=== PATIENT | female | born 1975 | race Caucasian/White ===

== ENCOUNTER 2016-06-26 08:23 | Emergency (ER) | payer OTHER ==
[2016-06-26 08:34] VITALS: TEMP 97.3
--- NOTE | 2016-06-26 08:41 | CPEKG ---
Heart Rate: 76 RR Interval: 789 P-R Interval: 192 QRSD Interval: 84 QT Interval: 360 QTC Interval: 405 P [place]: -7 QRS [place]: 14 T Wave [place]: 22 EKG Severity - NORMAL ECG - EKG Impression: SINUS RHYTHM Electronically Signed By: Heike Barone 26-Jun-2016 15:32:58
[2016-06-26] MEDS ORDERED: ONDANSETRON 4 MG/2 ML VIAL IVP ONE (09:08)
[2016-06-26] MEDS ORDERED: ASPIRIN 81 MG CHEWABLE TAB PO ONE (09:08)
--- NOTE | 2016-06-26 09:08 | EDPHY ---
H & P Time Seen by Provider: 06/26/16 08:44 HPI/ROS: CHIEF COMPLAINT: Chest pain HISTORY OF PRESENT ILLNESS: Patient is a 40-year-old female with a complicated past medical history. She has a history of coronary artery dissection. This is required total of 7 stents. Her last catheterization was in 2013. Patient has had ongoing issues with her "stomach." Patient states this is stemming from a gastric sleeve surgery. Patient has not been feeling well since Friday. She has felt lightheaded and dizzy. Last night she woke up diaphoretic. She noticed left-sided chest pressure. This radiated to her arm. It was moderate in severity. It is been constant since last night. She denies any cough or measured fever. No leg pain or swelling. REVIEW OF SYSTEMS: My complete review of systems is negative except as mentioned in the HPI. Past Medical/Surgical History: Includes coronary dissection obesity, hypercholesterolemia, depression, anxiety , reflux, chronic abdominal discomfort, C diff Past surgical history: Includes tonsillectomy, gastric sleeve with revision, C- section x2, cholecystectomy, endometrial ablation, hysterectomy Social History: Social: The patient does not smoke. Smoking Status: Never smoked Physical Exam: Vitals noted GENERAL: No acute distress, alert. HEENT: Eyes normal to inspection, normal pharynx, no signs of dehydration. NECK: No thyromegaly, no lymphadenopathy, supple. RESPIRATORY: Clear to auscultation bilaterally, no rales, rhonchi or wheezing. CVS: Regular rate and rhythm, no rubs, murmurs, or gallops. ABDOMEN: Soft, nontender, nondistended, no organomegaly. BACK: Normal to inspection, no CVA tenderness. SKIN: Normal color, no rash, warm, dry. No pallor. EXTREMITIES: No pedal edema, no calf tenderness, no Homans sign or cords, no joint swelling. NEURO/PSYCH: Alert and oriented x3, normal mood and affect, normal motor sensory exam. No obvious cranial nerve deficit. Constitutional: Initial Vital Signs Temperature (C) 36.3 C 06/26/16 08:32 Heart Rate 79 06/26/16 08:32 Respiratory Rate 20 06/26/16 08:32 Blood Pressure 116/85 H 06/26/16 08:32 O2 Sat (%) 95 06/26/16 08:32 O2 Delivery Mode Room Air Allergies/Adverse Reactions: cephalexin monohydrate [From Keflex] Allergy (Verified 06/26/16 08:29) epinephrine Allergy (Verified 06/26/16 08:29) hydromorphone HCl [From Dilaudid] Allergy (Verified 06/26/16 08:29) Other-Enter Comments ibuprofen Allergy (Verified 06/26/16 08:29) morphine Allergy (Verified 06/26/16 08:29) NSAIDS (Non-Steroidal Anti-Inflamma Allergy (Verified 06/26/16 08:29) Penicillins Allergy (Verified 06/26/16 08:29) tape (plastic) Allergy (Uncoded 12/11/13 04:35) Rash Home Medications: Medication Instructions Recorded Aspirin EC [Aspirin EC 81 mg (*)] 81 mg PO HS 12/10/13 Clopidogrel Bisulfate [Plavix (*)] 75 mg PO HS 12/10/13 Cyanocobalamin [Vitamin B12 (*)] 2,500 mcg PO DAILY 12/10/13 Dexlansoprazole [Dexilant] 60 mg PO DAILY 12/10/13 Ergocalciferol [Vitamin D2 (*)] 50,000 unit PO GIMENEZ 12/10/13 Promethazine HCl [Phenergan 25mg 25 mg PO Q6 PRN 12/10/13 (*)] Pyridoxine HCl [Vitamin B-6 100 mg 100 mg PO DAILY 12/10/13 (*)] Sertraline HCl [Zoloft 100mg (*)] 250 mg PO HS 12/10/13 Topiramate [Topamax] 50 mg PO BID 12/10/13 Zolpidem Tartrate [Ambien 10 mg] 10 mg PO HS PRN 12/10/13 traZODone [traZODONE 50MG (*)] 50 mg PO HS 12/10/13 Herbals/Supplements -Info Only 1 ea PO DAILY 03/14/15 Labetalol HCl [Trandate 100 mg (*)] 100 mg PO BID 03/14/15 Ondansetron Odt [Zofran Odt 4 mg 8 mg PO Q6 PRN 03/14/15 (*)] Sucralfate [Carafate 1gm/10ml Oral 1 gm PO QID 03/14/15 Liquid (*)] Potassium Cl [Klor-Con 10 meq (RX)] 10 meq PO HS 04/06/15 Gabapentin [Neurontin 300 MG (*)] 300 mg PO HS 04/07/15 Acetaminophen [Tylenol 325mg (*)] 650 mg PO Q4 PRN #0 tab 04/09/15 Fentanyl 06/26/16 Medical Decision Making - Diagnostics EKG Interpretation: Sinus rhythm at 71. Normal axis. Normal intervals. No ST or T-wave abnormalities. This EKG is interpreted as normal by me. Imaging Results: Imaging Impressions Chest/Thorax CTA 06/26/16 10:32 Impression: 1. No evidence of thrombopulmonary embolic disease. 2. Normal caliber thoracic aorta. No dissection. 3. Clear lungs. 4. Small to moderate hiatal hernia. Findings discussed with Emergency Department physician, Heike Barone on June 26, 2016 at 11:00 a.m. ED Course/Re-evaluation: In the emergency department I discussed possible etiologies with the patient. I answered all her questions. Patient was given aspirin 324 mg orally. Laboratory studies, EKG were ordered. EKG shows normal sinus rhythm, normal rate, normal axis, normal intervals. There is slight ST elevation in III. I reviewed the patient's laboratory studies. The patient's troponin was negative. Her D-dimer was mildly elevated at 0.6. I discussed the results with cardiology [employer] OF [employer]. She was thus the case with Dr. Cuca Burton call me back. Patient complained of return of her chest pain. Repeat EKG was ordered. Patient was given fentanyl 50 mcg IV. Repeat EKG shows sinus rhythm with normal axis and normal intervals. There is still mild ST elevation in III. No change. I discussed the results with the patient answered all her questions. Due to the elevated D-dimer, she consented to CT angiogram. CT angiogram: Please refer the dictated report. No acute disease noted. I repaged cardiology. They will evaluate the patient in the emergency department. 1345: Dr. Sun saw the patient in the emergency department. He felt the patient could be discharged from the emergency department. He did not feel this was cardiac in nature. I discussed this with the patient. I answered all her questions. She was given warnings prior to leaving. She will return with worsening symptoms. Differential Diagnosis: My differential includes but is not limited to dissection, ACS, acute MS, pericarditis, myocarditis, pericardial effusion, pulmonary embolus - Data Points Laboratory Results: Laboratory Results 06/26/16 09:00 06/26/16 09:00 06/26/16 06/26/16 06/26/16 12:34 09:00 09:00 WBC RBC Hgb Hct MCV MCH MCHC RDW Plt Count MPV Neut % (Auto) Lymph % (Auto) [place] % (Auto) Eos % (Auto) Baso % (Auto) Nucleat RBC Rel Count Absolute Neuts (auto) Absolute Lymphs (auto) Absolute Monos (auto) Absolute Eos (auto) Absolute Basos (auto) Absolute Nucleated RBC Immature Gran % Immature Gran # D-Dimer 0.60 ug/mLFEU H ug/mLFEU (0.00-0.50) Sodium 141 mEq/L mEq/L (134-144) Potassium 4.1 mEq/L mEq/L (3.5-5.2) Chloride 108 mEq/L mEq/L (97-110) Carbon Dioxide 24 mEq/l mEq/l (22-31) Anion Gap 9 mEq/L mEq/L (8-16) BUN 9 mg/dL mg/dL (7-23) Creatinine 0.6 mg/dL mg/dL (0.6-1.0) Estimated GFR > 60 Glucose 85 mg/dL mg/dL (70-100) Calcium 8.8 mg/dL mg/dL (8.5-10.4) Total Bilirubin 0.7 mg/dL mg/dL (0.1-1.4) Conjugated Bilirubin 0.5 mg/dL mg/dL (0.0-0.5) Unconjugated Bilirubin 0.2 mg/dL mg/dL (0.0-1.1) AST 134 IU/L H IU/L (14-46) ALT 78 IU/L H IU/L (9-52) Alkaline Phosphatase 60 IU/L IU/L (38-126) Troponin I < 0.012 ng/mL ng/mL < 0.012 ng/mL ng/mL (0-0.034) (0-0.034) Total Protein 6.4 g/dL g/dL (6.3-8.2) Albumin 3.8 g/dL g/dL (3.5-5.0) Lipase 46.0 IU/L IU/L (23-300) 06/26/16 09:00 WBC 5.83 10^3/uL 10^3/uL (3.80-9.50) RBC 4.52 10^6/uL 10^6/uL (4.18-5.33) Hgb 13.5 g/dL g/dL (12.6-16.3) Hct 39.1 % % (38.0-47.0) MCV 86.5 fL fL (81.5-99.8) MCH 29.9 pg pg (27.9-34.1) MCHC 34.5 g/dL g/dL (32.4-36.7) RDW 12.4 % % (11.5-15.2) Plt Count 208 10^3/uL 10^3/uL (150-400) MPV 9.3 fL fL (8.7-11.7) Neut % (Auto) 60.3 % % (39.3-74.2) Lymph % (Auto) 29.0 % % (15.0-45.0) [place] % (Auto) 7.7 % % (4.5-13.0) Eos % (Auto) 2.4 % % (0.6-7.6) Baso % (Auto) 0.3 % % (0.3-1.7) Nucleat RBC Rel Count 0.0 % % (0.0-0.2) Absolute Neuts (auto) 3.51 10^3/uL 10^3/uL (1.70-6.50) Absolute Lymphs (auto) 1.69 10^3/uL 10^3/uL (1.00-3.00) Absolute Monos (auto) 0.45 10^3/uL 10^3/uL (0.30-0.80) Absolute Eos (auto) 0.14 10^3/uL 10^3/uL (0.03-0.40) Absolute Basos (auto) 0.02 10^3/uL 10^3/uL (0.02-0.10) Absolute Nucleated RBC 0.00 10^3/uL 10^3/uL (0-0.01) Immature Gran % 0.3 % % (0.0-1.1) Immature Gran # 0.02 10^3/uL 10^3/uL (0.00-0.10) D-Dimer Sodium Potassium Chloride Carbon Dioxide Anion Gap BUN Creatinine Estimated GFR Glucose Calcium Total Bilirubin Conjugated Bilirubin Unconjugated Bilirubin AST ALT Alkaline Phosphatase Troponin I Total Protein Albumin Lipase Medications Given: Discontinued Medications Aspirin (Aspirin) 324 mg PO EDNOW ONE Stop: 06/26/16 09:09 Last Admin: 06/26/16 09:17 Dose: 324 mg Fentanyl (Sublimaze) 50 mcg IVP EDNOW ONE Stop: 06/26/16 10:28 Last Admin: 06/26/16 10:30 Dose: 50 mcg Ondansetron HCl (Zofran) 4 mg IVP EDNOW ONE Stop: 06/26/16 09:09 Last Admin: 06/26/16 09:17 Dose: 4 mg Departure - Departure Disposition: Home, Routine, Self-Care Clinical Impression: Chest pain Qualifiers: Chest pain type: unspecified Qualified Code(s): R07.9 - Chest pain, unspecified Condition: Good Instructions: Chest Pain (ED) Additional Instructions: Return with increasing chest pain, shortness of breath, fever, chills or any other concerns. Referrals: FLACO KAUFFMAN [Primary Care Provider] - 2-3 days, call for appt.
[2016-06-26 09:26] LABS: % IMMATURE GRANULYOCYTES 0.3 % (0.0-1.1); ABSOLUTE IMMATURE GRANULOCYTES 0.02 10^3/uL (0.00-0.10); ADD DIFF? NO; ADD MORPH? NO; ADD SCAN? NO; ATYPICAL LYMPHOCYTE FLAG 20 (0-99); FRAGMENT RBC FLAG 0 (0-99); HEMATOCRIT 39.1 % (38.0-47.0); HEMOGLOBIN 13.5 g/dL (12.6-16.3); LEFT SHIFT FLG 0 (0-99); LIPEMIA HEMOLYSIS FLAG 90 (0-99); MEAN CELL HEMOGLOBIN 29.9 pg (27.9-34.1); MEAN CELL HEMOGLOBIN CONCENTR. 34.5 g/dL (32.4-36.7); MEAN CELL VOLUME 86.5 fL (81.5-99.8); MEAN PLATELET VOLUME 9.3 fL (8.7-11.7); PLATELET CLUMPS FLAG 0 (0-99); PLATELET COUNT 208 10^3/uL (150-400); RED BLOOD CELL COUNT 4.52 10^6/uL (4.18-5.33); RED CELL DISTRIBUTION WIDTH 12.4 % (11.5-15.2)
[2016-06-26 09:37] LABS: ALANINE AMINOTRANSFERASE 78 IU/L (9-52); ALBUMIN 3.8 g/dL (3.5-5.0); ALKALINE PHOSPHATASE 60 IU/L (38-126); ANION GAP 9 mEq/L (8-16); ASPARTATE AMINOTRANSFERASE 134 IU/L (14-46); BILIRUBIN,TOTAL 0.7 mg/dL (0.1-1.4); BILIRUBIN-CONJUGATED 0.5 mg/dL (0.0-0.5); BILIRUBIN-UNCONJUGATED 0.2 mg/dL (0.0-1.1); CALCIUM 8.8 mg/dL (8.5-10.4); CARBON DIOXIDE 24 mEq/l (22-31); CHLORIDE 108 mEq/L (97-110); CREATININE 0.6 mg/dL (0.6-1.0); GLOMERULAR FILTRATION RATE > 60; GLUCOSE 85 mg/dL (70-100); POTASSIUM 4.1 mEq/L (3.5-5.2); SODIUM 141 mEq/L (134-144); TOTAL PROTEIN 6.4 g/dL (6.3-8.2)
[2016-06-26 09:44] VITALS: RESP 18
[2016-06-26 10:05] LABS: TROPONIN I < 0.012 ng/mL (0-0.034)
[2016-06-26] MEDS ORDERED: fentaNYL 100 MCG/2 ML INJ IVP ONE (10:27)
--- NOTE | 2016-06-26 10:32 | CPEKG ---
Heart Rate: 69 RR Interval: 870 P-R Interval: 192 QRSD Interval: 88 QT Interval: 384 QTC Interval: 412 P [place]: 1 QRS [place]: 10 T Wave [place]: 21 EKG Severity - NORMAL ECG - EKG Impression: SINUS RHYTHM Electronically Signed By: Heike Barone 26-Jun-2016 15:32:58
[2016-06-26] MEDS ORDERED: IOPAMIDOL (ISOVUE 370) 100 ML BTL IV ONE (10:42)
[2016-06-26 12:06] VITALS: BP 121/74; PULSE 64; O2SAT 95
--- NOTE | 2016-06-26 14:10 | PDCONSULT ---
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 She presents to the emergency department complaining of left-sided chest discomfort that radiated into her left arm and woke her from sleep. This was associated with profuse and abnormal sweating. The patient has also recently struggled with stomach pain and frequent nausea/vomiting associated with gastric sleeve surgery. She is planning on following up with a bariatric specialist in [place] regarding these issues. The chest discomfort has since dissipated and she feels well. ROS is negative except as stated above. Physical Exam: General: Patient is alert, in no acute distress. Obese. ENT: Eyes are normal to inspection. Neck: Normal inspection. Full range of motion. Respiratory: No respiratory distress. Breath sounds normal bilaterally. Cardiovascular: Regular rate and rhythm. No murmur, gallops or rubs. Abdomen: The abdomen is nontender to palpation. There are normal bowel sounds. Back: Normal to inspection. No tenderness to palpation. Skin: Normal color. No rash. Warm and dry. Extremities: Normal appearance. Full range of motion. Neuro: Oriented x3. Chest CTA: Negative for PE, normal caliber thoracic aorta, no evidence of dissection, clear lungs, small to moderate hiatal hernia. Assessment/Plan: 1. Chest discomfort. Negative troponin, resting EKG not suggestive of ischemia. She had a recent cardiac cath 03/14/15, which showed widely patent stents, no obstructive lesions identified and normal left ventricular filling pressures. I do not believe further cardiac testing is warranted in the absence of new symptoms or worsening chest discomfort. The patient should return to the emergency department promptly if she experiences new or worsening symptoms. 30 minutes was spent with the patient today with over 50% of the time discussing care, reviewing studies and physical exam
== END 2016-06-26 14:15 | disposition home or self-care (01) ==
DX: R07.9 Chest pain, unspecified (principal); Z79.82 Long term (current) use of aspirin
CPT/HCPCS: 96374; J2405; J3010; Q9967

== ENCOUNTER 2017-05-12 17:53 | Observation (INO) | payer OTHER ==
--- NOTE | 2017-05-12 17:59 | EDPHY ---
H & P Time Seen by Provider: 05/12/17 17:57 HPI/ROS: CHIEF COMPLAINT: Chest pain HISTORY OF PRESENT ILLNESS: Patient describes chest pain over the last 3 weeks which she describes as aching going to her left arm with tingling and numbness in her arm as well as radiating up to her neck. She describes increasing frequency of oral nitroglycerin which is now daily, which does help gives her headache. The patient had LAD dissection back in 2005 with stenting then and in 2007. Last cardiac catheterization in our system is in 2016 but she says she has had 17 cardiac catheterizations. She saw her station captain Dr. Gutierrez last Friday who ordered as a CT arteriogram of her coronaries but that has not been done yet. Patient's symptoms are progressive and worsening. Not associated with fevers or chills, but with shortness of breath and decreased exercise tolerance. Describes them as severe. REVIEW OF SYSTEMS: Eye: no change in vision ENT: no sore throat Cardiac: HPI no palpitations or syncope Pulmonary: HPI Abdomen: Patient has chronic nausea vomiting and some abdominal pain since her gastric sleeve surgery in 2007. The symptoms are essentially unchanged from with a have been Musculoskeletal: no back pain Skin: no rash Neuro: no headache Constitutional: no fever : no urinary symptoms A comprehensive 10 point review of systems is otherwise negative aside from elements mentioned in the history of present illness. PAST MEDICAL HISTORY: Gastric bypass sleeve surgery in 2007, coronary artery dissection as above. Depression and anxiety, Clostridium difficile. Social history: Here with her mother. 94% on RA General Appearance: Alert and conversant, cooperative. Eyes: No scleral icterus. ENT, Mouth: Normal mucous membranes. Respiratory: Normal respiratory effort, breath sounds equal, lungs are clear to auscultation. Cardiovascular: Regular rate and rhythm. Gastrointestinal: Abdomen is soft and non tender. No rebound or guarding, bowel sounds present. Neurological: Alert, face symmetric, normal motor and sensory in extremities. Skin: Warm and dry, no rashes. Musculoskeletal: No peripheral edema. Psychiatric: Not agitated. Appears mildly upset. Emergency Department course/MDM: Oral aspirin 324, low-dose IV nitroglycerin drip. Plan to admit, cycle troponins, cardiology consultation. Zofran 4 mg IV for nausea. Chest x-ray negative acute. Discussed with hospitalist. 1944: Fentanyl 100mcg IV for headache and abdominal pain, did not put on her fentanyl patch today. Smoking Status: Never smoked Constitutional: Initial Vital Signs Temperature (C) 36.9 C 05/12/17 18:04 Heart Rate 72 05/12/17 18:04 Respiratory Rate 16 05/12/17 18:04 Blood Pressure 136/90 H 05/12/17 18:04 O2 Delivery Mode Room Air Allergies/Adverse Reactions: cephalexin monohydrate [From Keflex] Allergy (Verified 05/12/17 17:59) epinephrine Allergy (Verified 05/12/17 17:59) hydromorphone HCl [From Dilaudid] Allergy (Verified 05/12/17 17:59) Other-Enter Comments ibuprofen Allergy (Verified 05/12/17 17:59) morphine Allergy (Verified 05/12/17 17:59) NSAIDS (Non-Steroidal Anti-Inflamma Allergy (Verified 05/12/17 17:59) Penicillins Allergy (Verified 05/12/17 17:59) tape (plastic) Allergy (Uncoded 05/12/17 17:59) Rash Home Medications: Medication Instructions Recorded Aspirin EC [Aspirin EC 81 mg (*)] 81 mg PO HS 12/10/13 Clopidogrel Bisulfate [Plavix (*)] 75 mg PO HS 12/10/13 Dexlansoprazole [Dexilant] 60 mg PO BID 12/10/13 Ergocalciferol [Vitamin D2 (*)] 50,000 unit PO TU 12/10/13 Promethazine HCl [Phenergan 25mg 25 mg PO Q6 PRN 12/10/13 (*)] Pyridoxine HCl [Vitamin B-6 100 mg 100 mg PO DAILY 12/10/13 (*)] Sertraline HCl [Zoloft 100mg (*)] 250 mg PO HS 12/10/13 Topiramate [Topamax] 50 mg PO BID 12/10/13 Zolpidem Tartrate [Ambien 10 mg] 10 mg PO HS PRN 12/10/13 Herbals/Supplements -Info Only 1 ea PO DAILY 03/14/15 Labetalol HCl [Trandate 100 mg (*)] 100 mg PO BID 03/14/15 Ondansetron Odt [Zofran Odt 4 mg 4 - 8 mg PO Q6 PRN 03/14/15 (*)] Sucralfate [Carafate 1gm/10ml Oral 1 gm PO TID 03/14/15 Liquid (*)] Potassium Cl [Klor-Con 10 meq (RX)] 10 meq PO HS 04/06/15 Gabapentin [Neurontin 300 MG (*)] 300 mg PO BID 04/07/15 Acetaminophen [Tylenol 325mg (*)] 650 mg PO Q4 PRN #0 tab 04/09/15 fentaNYL [Duragesic 12 MCG Patch 12 mcg TD Q72H 06/26/16 (*)] Albuterol [Proventil Inhaler HFA 1 - 2 puffs IH Q4H PRN 05/12/17 (*)] Fluticasone/Salmeter 250/50Mcg 1 puffs IH BID 05/12/17 [Advair 250/50 (*)] Hydrocodone/Acetaminophen [[place] 1 each PO BID PRN 05/12/17 7.5-325 Tablet] Montelukast Sodium [Singulair 10 10 mg PO HS 05/12/17 mg (*)] Nitroglycerin [Nitrostat 0.4 mg 0.4 mg SL Q5M PRN 05/12/17 (*)] Prazosin HCl [Minipress 1mg (*)] 1 mg PO HS 05/12/17 clonazePAM [Klonopin (*)] 0.5 mg PO TID PRN 05/12/17 tiZANidine HCL [Zanaflex] 4 mg PO TID 05/12/17 traZODone [traZODONE 100MG (*)] 100 mg PO HS 05/12/17 Medical Decision Making - Diagnostics EKG Interpretation: 12-lead EKG interpreted by me; official reading is in trace master. My interpretation is sinus rhythm rate 69 with PVC but no ischemic changes. Imaging Results: Imaging Impressions Chest X-Ray 05/12/17 18:13 Impression: No acute pulmonary disease. Mild cardiomegaly. Imaging: I viewed and interpreted images myself Differential Diagnosis: Differential diagnosis considered for chest pain including but not limited to myocardial ischemia, aortic dissection, pericarditis, pulmonary embolus, chest wall pain, pleural inflammation and pulmonary infectious causes. Consult/Admit Bed Type: [place] [id number] - Data Points Laboratory Results: Laboratory Results 05/12/17 18:15 05/12/17 18:15 18 05/12/17 18:15 18:15 WBC 7.31 10^3/uL 10^3/uL (3.80-9.50) RBC 4.14 10^6/uL L 10^6/uL (4.18-5.33) Hgb 12.3 g/dL L g/dL (12.6-16.3) Hct 37.0 % L % (38.0-47.0) MCV 89.4 fL fL (81.5-99.8) MCH 29.7 pg pg (27.9-34.1) MCHC 33.2 g/dL g/dL (32.4-36.7) RDW 12.8 % % (11.5-15.2) Plt Count 174 10^3/uL 10^3/uL (150-400) MPV 9.1 fL fL (8.7-11.7) Neut % (Auto) 50.0 % % (39.3-74.2) Lymph % (Auto) 39.4 % % (15.0-45.0) [place] % (Auto) 7.0 % % (4.5-13.0) Eos % (Auto) 2.9 % % (0.6-7.6) Baso % (Auto) 0.4 % % (0.3-1.7) Nucleat RBC Rel Count 0.0 % % (0.0-0.2) Absolute Neuts (auto) 3.66 10^3/uL 10^3/uL (1.70-6.50) Absolute Lymphs (auto) 2.88 10^3/uL 10^3/uL (1.00-3.00) Absolute Monos (auto) 0.51 10^3/uL 10^3/uL (0.30-0.80) Absolute Eos (auto) 0.21 10^3/uL 10^3/uL (0.03-0.40) Absolute Basos (auto) 0.03 10^3/uL 10^3/uL (0.02-0.10) Absolute Nucleated RBC 0.00 10^3/uL 10^3/uL (0-0.01) Immature Gran % 0.3 % % (0.0-1.1) Immature Gran # 0.02 10^3/uL 10^3/uL (0.00-0.10) Sodium 141 mEq/L mEq/L (135-145) Potassium 4.0 mEq/L mEq/L (3.5-5.2) Chloride 107 mEq/L mEq/L (97-110) Carbon Dioxide 24 mEq/l mEq/l (22-31) Anion Gap 10 mEq/L mEq/L (8-16) BUN 12 mg/dL mg/dL (7-23) Creatinine 0.6 mg/dL mg/dL (0.6-1.0) Estimated GFR > 60 Glucose 82 mg/dL mg/dL (70-100) Calcium 8.4 mg/dL L mg/dL (8.5-10.4) Total Bilirubin 0.4 mg/dL mg/dL (0.1-1.4) Conjugated Bilirubin 0.3 mg/dL mg/dL (0.0-0.5) Unconjugated Bilirubin 0.1 mg/dL mg/dL (0.0-1.1) AST 21 IU/L IU/L (14-46) ALT 31 IU/L IU/L (9-52) Alkaline Phosphatase 45 IU/L IU/L (38-126) Troponin I < 0.012 ng/mL ng/mL (0.000-0.034) Total Protein 6.5 g/dL g/dL (6.3-8.2) Albumin 3.9 g/dL g/dL (3.5-5.0) Lipase 33 IU/L IU/L (23-300) Medications Given: Discontinued Medications Acetaminophen (Tylenol) 650 mg PO EDNOW ONE Stop: 05/12/17 18:56 Last Admin: 05/12/17 19:00 Dose: 650 mg Aspirin (Aspirin) 324 mg PO EDNOW ONE Stop: 05/12/17 18:14 Last Admin: 05/12/17 18:25 Dose: 324 mg Sodium Chloride (Ns) 1,000 mls @ 0 mls/hr IV EDNOW ONE; Wide Open PRN Reason: Protocol Stop: 05/12/17 18:14 Last Admin: 05/12/17 18:25 Dose: 1,000 mls Nitroglycerin/Dextrose (Nitroglycerin 200 Mcg/Ml (Premix)) 250 mls @ 0 mls/hr IV CONT ONE; Titrate PRN Reason: Protocol Stop: 05/12/17 18:14 Last Admin: 05/12/17 18:27 Dose: 250 mls Ondansetron HCl (Zofran) 4 mg IVP EDNOW ONE Stop: 05/12/17 18:14 Last Admin: 05/12/17 18:25 Dose: 4 mg Departure - Departure Disposition: [facility] Inpatient Acute Clinical Impression: Chest pain Qualifiers: Chest pain type: unspecified Qualified Code(s): R07.9 - Chest pain, unspecified Nausea & vomiting Qualifiers: Vomiting type: unspecified Vomiting Intractability: non-intractable Qualified Code(s): R11.2 - Nausea with vomiting, unspecified Condition: Good
--- NOTE | 2017-05-12 18:07 | CPEKG ---
Heart Rate: 69 RR Interval: 870 P-R Interval: 200 QRSD Interval: 86 QT Interval: 400 QTC Interval: 429 P [place]: -3 QRS [place]: 20 T Wave [place]: 34 EKG Severity - NORMAL ECG - EKG Impression: SINUS RHYTHM Electronically Signed By: Nam Car 12-May-2017 18:14:10
[2017-05-12] MEDS ORDERED: ASPIRIN 81 MG CHEWABLE TAB PO ONE (18:13)
[2017-05-12] MEDS ORDERED: NS 1,000 ML IV ONE (18:13)
[2017-05-12] MEDS ORDERED: ONDANSETRON 4 MG/2 ML VIAL IVP ONE (18:13)
[2017-05-12] MEDS ORDERED: NITROGLYCERIN/DEXTROSE 250 ML IV ONE (18:13)
[2017-05-12 18:19] LABS: PLATELET COUNT 174 10^3/uL (150-400)
[2017-05-12] MEDS ORDERED: ACETAMINOPHEN 325 MG TAB PO ONE (18:55)
[2017-05-12] MEDS ORDERED: fentaNYL 100 MCG/2 ML INJ IVP ONE (19:45)
[2017-05-12] MEDS ORDERED: ACETAMINOPHEN 325 MG TAB PO PRN (21:55)
[2017-05-12] MEDS ORDERED: ONDANSETRON DISINTEGRATING 4 MG TAB PO PRN ×2 (21:55→21:58)
[2017-05-12] MEDS ORDERED: PROMETHAZINE HCL 25 MG TAB PO PRN (21:58)
[2017-05-12] MEDS ORDERED: NITROGLYCERIN 0.4 MG BTL SL PRN (21:58)
[2017-05-12] MEDS ORDERED: clonazePAM 0.5 MG TAB PO PRN (21:58)
[2017-05-12] MEDS ORDERED: ALBUTEROL 60 PUFFS/8 GM MDI IH PRN (21:58)
[2017-05-12] MEDS ORDERED: ZOLPIDEM TARTRATE 5 MG TAB PO PRN (22:12)
--- NOTE | 2017-05-12 22:25 | GHP ---
[f rep st] HISTORY AND PHYSICAL DATE OF ADMISSION: 05/12/2017 CHIEF COMPLAINT: Chest pain. 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 She is presenting w ith a complaint of chest pain. She has a history of hypertension, diabetes, hyperlipidemia, and depr ession, and presents with a complaint of chest pain. In addition, she has a complaint of some abdomi nal pain referenced to reflux. Yet, what she calls her chest pain is anterior chest with radiation t o her neck and left arm and sometimes her right arm. This has been a progressive, developing problem for the last 2-3 weeks, and worse in the last week. She is now using nitroglycerin 2 or 3 times a d ay and notes that it does relieve her chest pain, and sometimes it also relieves part of her abdomina l pain. Because of the increasing nature of her use of nitroglycerin, she has been referred here by [facility] and a request for admission for further evaluation. The exact etiology of these sympto ms is unknown, as she was seen at [facility] by Dr. Richard Frias on May 06, 2017. In addition to her chest pain, she has significant GI issues with both GERD and a hiatal hernia. In 2007, she had a gastric sleeve done at the [facility], and lost approximately 130 to 140 pounds . She has since had recurrent problems with gastric outlet, pyloric stricture, and has required nume sylwia balloon dilations for relief. Thus, she has 2 types of pain. One is her abdominal pain associa brenna with reflux and a feeling of nausea, which she separates from her from her chest pain. Additiona lly, she is requesting a cardiac clearance to be off aspirin and Plavix for a gastric surgery. PAST MEDICAL HISTORY: 1. Coronary artery disease. 2. Chest pain. 3. Coronary artery dissection dating to 2005. 4. Dyslipidemia. 5. Hypertension. 6. Mbd-xykyiwu-owjabocyy diabetes mellitus type 2. 7. An overweight state. SOCIAL HISTORY: She is here with her mother. She has 2 children, both teenagers, and is single. REVIEW OF SYSTEMS: A comprehensive 10-point review of systems is negative. FAMILY HISTORY: Positive for coronary artery disease, diabetes mellitus, and hypertension. SOCIAL HISTORY: She rarely drinks alcohol, but only socially, and has never smoked tobacco. PHYSICAL EXAMINATION: GENERAL: This is a pleasant, alert female who appears in no distress. Nitrog lycerin drip is active at the time of my evaluation. VITAL SIGNS: Normal, except for a slight eleva tion of diastolic pressure at 136/90. She is afebrile. HEENT: Normal. CHEST: Chest wall nontende r to palpation. LUNGS: Clear to P and A. HEART: Singular S1 and S2. ABDOMEN: Overweight. Normo active bowel sounds. There is tenderness in the epigastrium and in the right upper quadrant without a palpable or pulsatile mass or signs of rebound. EXTREMITIES: Without edema. LABORATORY: 1. CBC is normal, except for a slight anemia with hemoglobin 12.3. Her electrolyte panel is entirel y normal. 2. Chest x-ray shows no active cardiopulmonary disease with mild cardiomegaly to my review on the [employer] [facility] system. 3. ECG shows sinus rhythm at 70 with 1 PVC, but no ischemic changes. ASSESSMENT: 1. Acute chest pain of questionable cardiac origin. Her pain does seem to be relieved by nitroglyce rin. She has a complicated coronary history with a history of coronary dissection and has had 17 car diac catheterizations by her report. This is corroborated with the history in [place] and with [facility]. Thus, it seems best to attempt to resolve her issues of cardiac matters without doing a c oronary angiogram. In addition, she is seeking cardiac clearance for a gastric surgery. Per notes o f Dr. Richard Frias in her recent visit at [facility], she can be off aspirin and Plavix for this pr ocedure. 2. Abdominal pain. Perhaps related to gastroesophageal reflux disease in reflux and gastric outlet issues. Further evaluation and review by Gastroenterology may be necessary to clarify this. She has a long history of this problem, has seen other physicians for this, and it may be best to first reso lve her cardiac issue and then address the gastric one. 3. Code status is full. 4. Her deep venous thrombosis prophylaxis will be with Lovenox. We will not fully anticoagulate her , as there are no signs of cardiac ischemia. TIME: This admission required 65 minutes. DISPOSITION: She will be admitted to observation status. /[id number]/MODL
[2017-05-12] MEDS: FLUTICASONE/SALMETER 250/50MCG DISKUS IH SCH (22:29)
[2017-05-12] MEDS ORDERED: NITROGLYCERIN/DEXTROSE 250 ML IV SCH (22:30)
[2017-05-12] MEDS: HYDROCODONE/APAP 10/325 TAB PO PRN (22:48)
[2017-05-12] MEDS: LABETALOL HCL 100 MG TAB PO SCH (22:48)
[2017-05-12] MEDS: SUCRALFATE 1 GM/10 ML UDCUP PO SCH (22:48)
[2017-05-12] MEDS: GABAPENTIN 300 MG CAP PO SCH (22:48)
[2017-05-12] MEDS: NS W/ 20 KCl/L 1,000 ML IV SCH (22:49)
[2017-05-12] MEDS: PYRIDOXINE HCL 100 MG TAB PO SCH (23:01)
[2017-05-12] MEDS: SERTRALINE HCL 100 MG TAB PO SCH (23:57)
[2017-05-12] MEDS: traZODone 100 MG TAB PO SCH (23:57)
[2017-05-12] MEDS: PRAZOSIN HCL 1 MG CAP PO SCH (23:57)
[2017-05-13] MEDS: HYDROCODONE/APAP 10/325 TAB PO PRN (04:12)
[2017-05-13 04:30] LABS: PLATELET COUNT 150 10^3/uL (150-400)
[2017-05-13] MEDS: ONDANSETRON 4 MG/2 ML VIAL IVP PRN ×2 (08:21→15:02)
[2017-05-13] MEDS ORDERED: ERGOCALCIFEROL 50,000 I.UNIT CAP PO SCH (09:00)
[2017-05-13] MEDS: FLUTICASONE/SALMETER 250/50MCG DISKUS IH SCH ×2 (09:09→21:36)
[2017-05-13] MEDS: NS W/ 20 KCl/L 1,000 ML IV SCH (09:39)
--- NOTE | 2017-05-13 13:14 | PDCARPN ---
Cardiology Progress Note Chief Complaint: Chest pain Assessment/Plan: Assessment: Chest pain: She presented to ED with c/o chest pain. She tells me today that it is more her stomach that hurts and radiates into chest. She does not think it is her heart causing pain. She was seen in clinic by Dr Frias May 06 2017. At that time she felt Nitro provided relief. Today there is a Nitro drip going that is causing her headache and has upset her stomach. The Nitro drip will be stopped and see how she does. She is irritable, and in discomfort related to her stomach and headache, not chest pain. CAD: She has history of spontaneous dissection of the LAD, with seven stents placed in July 2014. Dr Richard Frias her primary physician had mentioned getting a CTA prior to upcoming surgery. After discussing this plan with Dr Cuca Burton , it would be better to get an Echocardiogram, as the CTA would not provide good information due to the inability to visualize the area of the seven stents. Her most recent angiogram did not show any other areas of significant stenosis. Abdominal upset: She is to have gastric surgery related to the previous "sleeve" surgery that became problematic, and subsequently her stomach upset is likely related to this. HTN: Currently well managed on current medications. Plan: Nitro drip stopped. Will get Echocardiogram to further evaluate cardiac status. 05/13/17 12:51 Subjective: My stomach is upset and have been nauseated and vomiting. Want that Nitro stopped. Reviewed/Discussed With: hospitalist, multidisciplinary team, other (Cuca Burton MD) Objective: Vital Signs (8 Hrs) Temp Pulse Resp BP Pulse Ox 05/13/17 11:15 36.9 C 93 17 145/78 H 90 L 05/13/17 07:02 36.9 C 71 10 L 120/57 L 97 Intake/Output (24 Hrs) 05/12/17 05/13/17 05/14/17 05:59 05:59 05:59 Intake Total 2310 Output Total 800 1100 Balance 1510 -1100 Intake: Oral (ml) 570 IV Infused (ml) 1740 NS W/ 20 KCl/L 1,000 ml @ 685 100 mls/hr IV CONT ANIKA Rx#:[id number] Nitroglycerin/Dextrose 55 250 ml @ Titrate IV CONT ANIKA Rx#:[id number] Output: Urine (ml) 800 700 Toilet 800 700 Emesis (ml) 400 Other: Weight 118.1 kg Number of Voids Toilet 1 2 Number of Emesis 4 Occurrences Result Diagrams: 05/13/17 03:45 05/13/17 03:45 - Physical Exam Constitutional: apparent distress, other (Headache and nausea) Cardiovascular: regular rate and rhythm, no murmurs, no rubs, no gallops Peripheral Pulses: 2+: dorsalis-pedis (R), dorsalis-pedis (L) Respiratory: clear to auscultate bilat, no crackles, no wheezes Skin: warm, no edema Neurologic: AAOx3 Psychiatric: cooperative, interactive, anxious, flat affect ICD10 Worksheet Patient Problems: Problems Problem Status Onset Fever Acute Colitis Acute C. difficile colitis Acute C. difficile diarrhea Acute 04/06/15 Chest pain Acute Nausea & vomiting Acute
--- NOTE | 2017-05-13 13:52 | ASMTCMCOM ---
CM Note CM Note Notes: 05/13/2017 Case Management Note Reviewed pt during multi disciplinary rounds this morning. Pt admitted for Chest pain. There are no case management d/c needs identified d/t pt age, family support and activity levels prior to admission. Pt is ambulating without difficulty in room. Pt lives with her Mom. Case Management d/c poc: home independent Case Management to follow. Date Signed: 05/13/2017 01:52 PM Electronically Signed By:Natalee Martinez RN
--- NOTE | 2017-05-13 14:33 | ECHO ---
[email or web address] [address] [address] Main: [phone] Fax: Transthoracic Echocardiogram Name: ABRAHAM JOHNSON MR#: [id number] Study Date: 05/13/2017 Study Time: 12:11 PM Date of : 1975 Age: 41 year(s) Height: 177.8 cm (70 in.) Weight: 117.94 kg (260 lb.) BSA: 2.33 m2 Gender: Female Examination: Limited Echo Indication: Hx of LAD PCI, CP, Eval LV Fx Image Quality: Contrast: Requested by: Cuca Burton BP: 145 mmHg/78 mmHg Heart Rate: Rhythm: Normal sinus rhythm Indication: Hx of LAD PCI, CP, Eval LV Fx Procedure Staff Mononitrotoluene Operator: Steve Rueda RD Reading Physician: Ulysses Ambrocio MD Requesting Provider: Conclusions: Normal global systolic LV function. The mitral valve is normal in appearance and function. The aortic valve is normal in appearance and function. Measurements: Chambers Valvular Assessment AV/MV Valvular Assessment TV/PV Normal Normal Normal Name Value Range Name Value Range Name Value Range IVSd (2D): 0.8 cm (0.6 cm-1.1 cm) LVDd (2D): 5.2 cm (3.9 cm-5.3 cm) LVDs (2D): 3.2 cm (2.1 cm-4 cm) LVPWd (2D): 1.0 cm ( - ) LVEF (MM): 71 (>=55 %) Continued Measurements: Findings: Left Ventricle: Normal size left ventricle. No LV hypertrophy. Normal global systolic LV function. EF is 71 %. No regional wall motion abnormality. Mitral Valve: The mitral valve is normal in appearance and function. Aortic Valve: The aortic valve is normal in appearance and function. Tricuspid Valve: The tricuspid valve is normal in appearance and function. Patient: ABRAHAM JOHNSON Study Date: 05/13/2017 Page 1 of 2 12:11 PM Aorta: The aorta is normal. Pericardium: No pericardial effusion. (No Signature Object) Patient: ABRAHAM JOHNSON Study Date: 05/13/2017 Page 2 of 2 12:11 PM [id number]
[2017-05-13] MEDS ORDERED: fentaNYL 12 MCG PATCH TD SCH (15:15)
[2017-05-13] MEDS: SUCRALFATE 1 GM/10 ML UDCUP PO SCH ×3 (15:38→22:46)
[2017-05-13] MEDS: LABETALOL HCL 100 MG TAB PO SCH ×2 (15:38→22:48)
[2017-05-13] MEDS: PANTOPRAZOLE SODIUM 40 MG TAB PO SCH ×2 (15:39→22:48)
[2017-05-13] MEDS: TOPIRAMATE 25 MG TAB PO SCH ×2 (15:39→22:48)
[2017-05-13] MEDS: GABAPENTIN 300 MG CAP PO SCH ×2 (15:39→22:47)
[2017-05-13] MEDS: PYRIDOXINE HCL 100 MG TAB PO SCH (15:40)
[2017-05-13] MEDS: ENOXAPARIN 40 MG/0.4 ML SYR SC SCH (15:42)
--- NOTE | 2017-05-13 17:19 | PDCARPN ---
Cardiology Progress Note Assessment/Plan: Assessment: Chest pain: She presented to ED with c/o chest pain. She tells me today that it is more her stomach that hurts and radiates into chest. She does not think it is her heart causing pain. She was seen in clinic by Dr Frias May 06 2017. At that time she felt Nitro provided relief. Today there is a Nitro drip going that is causing her headache and has upset her stomach. The Nitro drip will be stopped and see how she does. She is irritable, and in discomfort related to her stomach and headache, not chest pain. CAD: She has history of spontaneous dissection of the LAD, with seven stents placed in July 2014. Dr Richard Frias her primary physician had mentioned getting a CTA prior to upcoming surgery. After discussing this plan with Dr Cuca Burton , it would be better to get an Echocardiogram, as the CTA would not provide good information due to the inability to visualize the area of the seven stents. Her most recent angiogram did not show any other areas of significant stenosis. Abdominal upset: She is to have gastric surgery related to the previous "sleeve" surgery that became problematic, and subsequently her stomach upset is likely related to this. HTN: Currently well managed on current medications. Plan: Nitro drip stopped. Will get Echocardiogram to further evaluate cardiac status. 05/13/17 12:51 05/13/17 17:19 ECHO showed no significant findings. Will Sign off. Objective: Vital Signs (8 Hrs) Temp Pulse Resp BP Pulse Ox 05/13/17 15:50 37.0 C 69 12 143/79 H 94 05/13/17 11:15 36.9 C 93 17 145/78 H 90 L Intake/Output (24 Hrs) 05/12/17 05/13/17 05/14/17 05:59 05:59 05:59 Intake Total 2310 Output Total 800 1100 Balance 1510 -1100 Intake: Oral (ml) 570 IV Infused (ml) 1740 NS W/ 20 KCl/L 1,000 ml @ 685 100 mls/hr IV CONT ANIKA Rx#:[id number] Nitroglycerin/Dextrose 55 250 ml @ Titrate IV CONT ANIKA Rx#:[id number] Output: Urine (ml) 800 700 Toilet 800 700 Emesis (ml) 400 Other: Weight 118.1 kg Number of Voids Toilet 1 2 Number of Emesis 4 Occurrences Result Diagrams: 05/13/17 03:45 05/13/17 03:45 ICD10 Worksheet Patient Problems: Problems Problem Status Onset Chest pain Acute Nausea & vomiting Acute C. difficile colitis Acute C. difficile diarrhea Acute 04/06/15 Colitis Acute Fever Acute
--- NOTE | 2017-05-13 19:42 | HOSPPROG ---
Hospitalist Progress Note Assessment/Plan: DIAGNOSES: -chronic epigastric and low substernal pain appears probably due to esophageal and gastric etiology potentially related to her multiple surgeries, potentially related to acid issues but unresponsive to asked therapy, and very likely involving some spasm as it does respond to nitroglycerin routinely: History of gastric sleeve surgery and then multiple surgeries subsequent to that, now resulting in ongoing chronic pain in inability to take in diet normally -I see no evidence to suggest a cardiac etiology of any her symptoms at this time -protein calorie malnutrition evidence by her symptoms and her laboratory values , though she is overall able to maintain significant subcutaneous body fat stores and is overweight; her diet is certainly suboptimal but limited by her GI symptoms -chronic anemia -chronic pain syndrome with chronic prescribed narcotic daily use -history of dissection spontaneously of left anterior descending coronary artery treated with 7 stents -hypertension history -history hyperlipidemia -history of cold induced asthma with occasional use of inhalers PLANS: Will try some topical nitroglycerin in a low-dose patch to see if she can get any benefit from that without Headache Continue to try and symptom treat her symptomatically here see if we can get her to the point where she can discharging continue follow up with 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 She also complains of severe headache caused by nitroglycerin drip. We have stopped the nitroglycerin drip in the headache is slowly receding but she still has it. She is somewhat nauseous now and having trouble eating but is taking in oral fluids okay. She recounts to me that for quite some years now she has had ongoing symptoms just like this and she has an extremely limited diet because she can only tolerate swelling certain foods. She tells me that she uses nitroglycerin 3 times a day which helps relieve her symptoms to some degree in sublingual form but does give her some headaches. She is hoping for a surgical solution to her problem but not sure that there is 1 out there with at least 1 surgeon declining to offer what they think is any kind of helpful surgery. She would like to go back to the [facility] and see if they can help her there. The patient has continued to use proton pump inhibitors and Carafate without any real benefit. She has no symptoms suggesting heart failure. OBJECTIVE Vitals reviewed: Overall stable without fever Monogram Machine Operator, my review: All sinus Exam: alert oriented looks quite uncomfortable and quite frustrated skin warm dry color ok resps not labored lungs clear BSs heart regular abd soft nondistended with some epigastric tenderness, bowel sounds present limbs warm, no edema iv site ok Laboratory data: All of her troponins are negative Signs of malnutrition include low albumin and anemia Objective: Vital Signs Temp Pulse Resp BP Pulse Ox 37.0 C 69 12 143/79 H 94 05/13/17 15:50 05/13/17 15:50 05/13/17 15:50 05/13/17 15:50 05/13/17 15:50 Laboratory Results 05/13/17 03:45 05/13/17 03:45 05/12/17 05/13/17 05/14/17 06:59 06:59 06:59 Intake Total 2310 1700 Output Total 800 1400 Balance 1510 300 - Time Spent With Patient Time Spent with Patient: greater than 35 minutes Time Spent with Patient: Greater than 35 minutes spent on this patients care, greater than 50% of time spent counseling, educating, and coordinating care regarding the above mentioned plan. ICD10 Worksheet Patient Problems: Problems Problem Status Onset Chest pain Acute Nausea & vomiting Acute C. difficile colitis Acute C. difficile diarrhea Acute 04/06/15 Colitis Acute Fever Acute
[2017-05-13] MEDS ORDERED: POTASSIUM CL 10 MEQ TAB PO SCH (21:00)
[2017-05-13] MEDS ORDERED: MONTELUKAST SODIUM 10 MG TAB PO SCH (21:00)
[2017-05-13] MEDS ORDERED: ASPIRIN EC 81 MG TAB PO SCH (21:00)
[2017-05-13] MEDS ORDERED: CLOPIDOGREL BISULFATE 75 MG TAB PO SCH (21:00)
[2017-05-13] MEDS ORDERED: PATCH REMOVAL 1 EA PATCH TD SCH (21:00)
[2017-05-13] MEDS: traZODone 100 MG TAB PO SCH (22:47)
[2017-05-13] MEDS: PRAZOSIN HCL 1 MG CAP PO SCH (22:47)
[2017-05-13] MEDS: SERTRALINE HCL 100 MG TAB PO SCH (22:48)
[2017-05-13] MEDS: NITROGLYCERIN 0.1 MG/HR PATCH TD SCH (22:50)
[2017-05-14] MEDS: NS W/ 20 KCl/L 1,000 ML IV SCH (08:18)
[2017-05-14] MEDS: PANTOPRAZOLE SODIUM 40 MG TAB PO SCH (08:46)
[2017-05-14] MEDS: GABAPENTIN 300 MG CAP PO SCH (08:46)
[2017-05-14] MEDS: PYRIDOXINE HCL 100 MG TAB PO SCH (08:46)
[2017-05-14] MEDS: TOPIRAMATE 25 MG TAB PO SCH (08:46)
[2017-05-14] MEDS: SUCRALFATE 1 GM/10 ML UDCUP PO SCH ×2 (08:47→15:15)
[2017-05-14] MEDS: NITROGLYCERIN 0.1 MG/HR PATCH TD SCH (08:48)
[2017-05-14] MEDS: LABETALOL HCL 100 MG TAB PO SCH (08:49)
[2017-05-14] MEDS: ENOXAPARIN 40 MG/0.4 ML SYR SC SCH (08:49)
[2017-05-14] MEDS: FLUTICASONE/SALMETER 250/50MCG DISKUS IH SCH (10:23)
[2017-05-14 14:53] VITALS: BP 142/80
[2017-05-14] MEDS: HYDROCODONE/APAP 10/325 TAB PO PRN (15:17)
--- NOTE | 2017-05-14 18:21 | PDDCSUM ---
Discharge Summary Discharge Summary: DISCHARGE DIAGNOSES: -ongoing chronic abdominal and substernal pain, nausea, vomiting, and inability to hydrate and take in food related to esophageal spasm and other complications of previous surgeries -dehydration -headache and nausea as a side effect of nitroglycerin given at home sublingually and intravenously here -malnutrition with poor intake of adequate diet, low albumin levels here -known history of chronic heart disease CONSULTANTS: Dr. Cuca Burton of cardiology PROCEDURES: Echocardiogram HOSPITAL COURSE SUMMARY: This patient who has had multiple surgeries comes in with chronic symptoms of pain, nausea, vomiting. Her story started back a number of years ago when she had a gastric sleeve surgery and had to have subsequent revision surgeries. Since then she has had continuous ongoing severe pain with nausea and vomiting. She has seen numerous gastroenterologists and a number of surgeons and has not ever come to a satisfactory control of her symptoms. Lately she has had severe limitations in what foods she can eat and what amount of foods she can eat. She has lost weight and has been requiring IV infusions every week or 2 because of dehydration and inability to hydrate herself orally. Her symptoms are not improved by chronic twice daily proton pump inhibitor and multiple daily doses of Carafate. She does have some prescribed oral narcotic that she uses at home that gives her minimal relief of her pain. She has had a number of other treatments medications tried none of which have been effective for her. Most recently she has been using sublingual nitroglycerin three times daily which at times gave her partial relief of her GI symptoms but is causing severe headaches and she did have headache at the presentation to the ER at this time. Her presenting symptoms were epigastric ends low substernal chest pain nausea vomiting and headache without fever or bleeding. These are identical to her ongoing chronic daily symptoms. As the patient does have a history of known coronary disease her initial assessment in the ER and during admission was to look for any possible signs of cardiac or coronary cause of the symptoms and none was found. She did have OK ruled out, had no heart failure or arrhythmia, had unchanged echocardiogram and no other signs of cardiac disease. She was seen by Dr. Cuca Burton of Cardiology who recommended no specific changes for her heart. She had been started on a nitroglycerin drip to see if this would control her symptoms and did not control her GI symptoms but did give her severe headache so it was stopped. Allowing for that to wear off of initially we tried living ago without any nitrates and this did not work as she was unable to keep food and fluids down. The patient was then trialed on a 0.1 milligram/hour and nitroglycerin patch. It took overnight for this to become effective but by today it does seem that this medicine is making it easier for her to get fluids in and she is eating small amounts of food. She has still some substernal epigastric pain but notably decreased since yesterday. Her headache is completely resolved and she has had no headache on the nitroglycerin patch so far after about 20 hr. At this point she feels comfortable going home. She will have to continue attempts to keep herself hydrated orally and is recommended that she take fluids slowly and continually throughout the day. She is set up to get fluids through her primary care service intravenously as she has been doing if she needs. I reviewed with her that it will take a week or 2 to determine whether this medicine will be consistently helpful or whether we consistently free of the severe headaches that she has been having. If she tolerates it but it is not helping as well as she needs, I did give her a prescription for 0.2 milligram/hour patch of transdermal nitroglycerin that she could try. PENDING TEST RESULTS: None MEDICATION CHANGES: Discontinuation of sublingual nitroglycerin which she had been taking three times daily at home Transdermal nitroglycerin patch 0.1 milligram/hour daily; she is also given a prescription so that if this does not adequately control her digestive symptoms and pain and she is tolerating the medicine she can try 0.2 milligram/hour patch after a week or 2. FOLLOW-UP PLAN: With her primary care physician within 1-2 weeks Greater than 35 minutes bedside and care coordination time today
== END 2017-05-14 16:39 | disposition home or self-care (01) ==
LOC: F2W 20:56
PROVIDERS: ADMIT Internal Medicine Pulmonary Disease; ATTEND Internal Medicine
DX: R10.13 Epigastric pain (principal); R11.2 Nausea with vomiting, unspecified; R63.8 Other symptoms and signs concerning food and fluid intake; T46.3X5A Adverse effect of coronary vasodilators, initial encounter; E86.9 Volume depletion, unspecified; R51 Headache; R07.89 Other chest pain; G89.4 Chronic pain syndrome; I25.10 Atherosclerotic heart disease of native coronary artery without angina pectoris; F41.9 Anxiety disorder, unspecified; F32.9 Major depressive disorder, single episode, unspecified; E11.9 Type 2 diabetes mellitus without complications; I10 Essential (primary) hypertension; E78.5 Hyperlipidemia, unspecified; K21.9 Gastro-esophageal reflux disease without esophagitis; K44.9 Diaphragmatic hernia without obstruction or gangrene; E66.3 Overweight; Z68.37 Body mass index [BMI] 37.0-37.9, adult; D64.9 Anemia, unspecified; Z79.82 Long term (current) use of aspirin; Z79.891 Long term (current) use of opiate analgesic; Z86.79 Personal history of other diseases of the circulatory system; Z95.5 Presence of coronary angioplasty implant and graft; Z98.84 Bariatric surgery status; Z88.0 Allergy status to penicillin
CPT/HCPCS: 71046; 93005; 93308; 96374; 96375; 99285; G0378; J1650; J2405; J3010

== ENCOUNTER 2017-09-12 11:20 | Observation (INO) | payer OTHER ==
[2017-09-12] MEDS ORDERED: NS 2,000 ML IV ONE (12:52)
[2017-09-12] MEDS ORDERED: KETAMINE 200 MG/20 ML VIAL IVP ONE (12:53)
[2017-09-12] MEDS ORDERED: DIAZEPAM 5 MG/ML 1 ML SYR IVP ONE (12:53)
--- NOTE | 2017-09-12 13:08 | EDPHY ---
H & P Stated Complaint: Low back pain x 2 days after riding rides and pulling suitcases - Personal History LMP (Females 10-55): Hysterectomy Current Tetanus Diphtheria and Acellular Pertussis (TDAP): Yes Tetanus Vaccine Date: 2011 - Medical/Surgical History Hx Asthma: Yes Hx Chronic Respiratory Disease: No Hx Diabetes: No Hx Cardiac Disease: Yes Hx Renal Disease: No Hx Cirrhosis: No Hx Alcoholism: No Hx HIV/AIDS: No Hx Splenectomy or Spleen Trauma: No Other PMH: chronic pain. Spontaneous Coronary Artery disection, Stents LAD X 7 , obesity, hypercholesterolemia, depression, anxiety, and reflux// 3 SURGERIES IN LAST 3 MONTHS. Gastric sleave, tosilectomy, back surg, 2 c-sections, amparo, endometreal ablation, hysterectomy, gastric sleeve repositioning; cdiff - Social History Smoking Status: Never smoked Time Seen by Provider: 09/12/17 12:27 HPI/ROS: CHIEF COMPLAINT: Intractable low back pain for the past 48 hr HISTORY OF PRESENT ILLNESS: 42-year-old female history of chronic low back pain , history of L5-S1 laminectomy and diskectomy and 1999, followed by pain management provider, complaining of intractable back pain after returning from a trip [place] yesterday. Pain seems to be exacerbated after standing in line for several hours and moving luggage and taking 1[employer] rides. No radiculopathy. No sciatica. No abdominal pain. No chest pain. No dyspnea. No fever or chills. No incontinence no retention. No saddle anesthesia. REVIEW OF SYSTEMS: A ten point review of systems was performed and is negative with the exception of the items mentioned in the HPI PAST MEDICAL & SURGICAL HISTORY: Chronic low back pain, lumbar diskectomy and microdiskectomy 1994 L5-S1. Complications from gastric sleeve surgery resulting in chronic decreased oral intake for which she has Q 7 day IV normal saline 2 L standing order at [facility]. History of spontaneous coronary artery dissection. Obesity. Hyperlipidemia. Hysterectomy SOCIAL HISTORY: Nonsmoker. No IV drug use. PHYSICAL EXAM (Prior to examination, patient consented to physical exam, hands were washed and my usual and customary physical exam procedures followed) 1) GENERAL: Well-developed, well-nourished, alert and oriented. Appears to be in no acute distress. 2) HEAD: Normocephalic, atraumatic 3) HEENT: Pupils equal, round, reactive to light bilaterally. Sclera anicteric. Nasopharynx, oropharynx, clear, no lesions. 4) NECK: Full range of motion, no meningeal signs. 5) LUNGS: Clear auscultation bilaterally, no wheezes, no rhonchi, no retractions. 6) HEART: Regular rate and rhythm, no murmur, no heave, no gallop. 7) ABDOMEN: No guarding, no rebound, no focal tenderness, negative McBurney's, negative Duffy's, negative Rovsing's, negative peritoneal sign, 8) MUSCULOSKELETAL: Moving all extremities, no focal areas of tenderness, no obvious trauma. No peripheral edema or discoloration. 9) BACK: tender to palpation paraspinous muscle. No CVA tenderness, no midline vertebral tenderness, no fluctuance, no step-off, no obvious trauma, no visual or palpable abnormality. Patella, Achilles reflexes intact to bilateral strength 5/5 10) SKIN: No rash, no petechiae. 11) NEURO: Awake, alert, and oriented to person, place and time. Answers questions appropriately. There were no obvious focal neurologic abnormalities. No cerebellar dysfunction. Normal steady gait. Upper and lower extremities bilaterally with strength 5 / 5, reflexes 2+.. DIFFERENTIAL DIAGNOSIS: In no particular order, including but not limited to, fracture, sprain/strain, cauda equina, spinal infectious etiology. MEDICAL DECISION MAKING 1:00 p.m.: Old medical records reviewed. Patient has intractable pain not alleviated with her pain management plan of [place], fentanyl patch, gabapentin. She feels that she will more than likely necessitate hospital admission for intractable back pain. Will attempt trial with IV ketamine for pain control at 0.2 milligrams/kilogram. At this time I do not think that emergent MRI indicated from the emergency department.Lower index of suspicion for cauda equina, epidural abscess, epidural hematoma, lumbar myositis, diskitis, as the patient is neurologically intact in the lower extremities, has patella and Achilles reflexes intact and equal bilaterally, has no neurologic deficits, no incontinence, no retention, no midline pain, no fluctuance, afebrile, no flulike symptoms. Care of patient under supervision of secondary supervising physician Dr Car . 1:48 p.m.: Patient given IV ketamine and although she feels "out of it" she continues to experience quite a bit of discomfort. Patient I had a lengthy discussion. She does not feel that she is safe to be discharged. Decision made to admit patient to the hospital. Consulted with hospitalist Hedy, admit to Dr. Thompson ([facility]) Constitutional: Initial Vital Signs Temperature (C) 37.2 C 09/12/17 11:21 Heart Rate 84 09/12/17 11:21 Respiratory Rate 18 09/12/17 11:21 Blood Pressure 177/104 H 09/12/17 11:21 O2 Sat (%) 96 09/12/17 11:21 O2 Delivery Mode Room Air Allergies/Adverse Reactions: cephalexin monohydrate [From Keflex] Allergy (Verified 09/12/17 11:20) epinephrine Allergy (Verified 09/12/17 11:20) hydromorphone HCl [From Dilaudid] Allergy (Verified 09/12/17 11:20) Other-Enter Comments ibuprofen Allergy (Verified 09/12/17 11:20) morphine Allergy (Verified 09/12/17 11:20) NSAIDS (Non-Steroidal Anti-Inflamma Allergy (Verified 09/12/17 11:20) Penicillins Allergy (Verified 09/12/17 11:20) tape (plastic) Allergy (Uncoded 05/12/17 17:59) Rash Home Medications: Medication Instructions Recorded Aspirin EC [Aspirin EC 81 mg (*)] 81 mg PO HS 12/10/13 Clopidogrel Bisulfate [Plavix (*)] 75 mg PO HS 12/10/13 Dexlansoprazole [Dexilant] 60 mg PO BID 12/10/13 Ergocalciferol [Vitamin D2 (*)] 50,000 unit PO TU 12/10/13 Promethazine HCl [Phenergan 25mg 25 mg PO Q6 PRN 12/10/13 (*)] Pyridoxine HCl [Vitamin B-6 100 mg 100 mg PO DAILY 12/10/13 (*)] Sertraline HCl [Zoloft 100mg (*)] 250 mg PO HS 12/10/13 Topiramate [Topamax] 50 mg PO BID 12/10/13 Zolpidem Tartrate [Ambien 10 mg] 10 mg PO HS PRN 12/10/13 Herbals/Supplements -Info Only 1 ea PO DAILY 03/14/15 Labetalol HCl [Trandate 100 mg (*)] 100 mg PO BID 03/14/15 Ondansetron Odt [Zofran Odt 4 mg 4 - 8 mg PO Q6 PRN 03/14/15 (*)] Sucralfate [Carafate 1gm/10ml Oral 1 gm PO TID 03/14/15 Liquid (*)] Potassium Cl [Klor-Con 10 meq (RX)] 10 meq PO HS 04/06/15 Gabapentin [Neurontin 300 MG (*)] 300 mg PO BID 04/07/15 Acetaminophen [Tylenol 325mg (*)] 650 mg PO Q4 PRN #0 tab 04/09/15 Albuterol [Proventil Inhaler HFA 1 - 2 puffs IH Q4H PRN 05/12/17 (*)] Fluticasone/Salmeter 250/50Mcg 1 puffs IH BID PRN 05/12/17 [Advair 250/50 (*)] Hydrocodone/Acetaminophen [Richford 1 each PO TID PRN 05/12/17 7.5-325 Tablet] Montelukast Sodium [Singulair 10 10 mg PO HS 05/12/17 mg (*)] Prazosin HCl [Minipress 1mg (*)] 1 mg PO HS 05/12/17 clonazePAM [Klonopin (*)] 0.5 mg PO TID PRN 05/12/17 tiZANidine HCL [Zanaflex] 4 mg PO TID 05/12/17 traZODone [traZODONE 100MG (*)] 100 mg PO HS 05/12/17 Nitroglycerin [Transderm-Nitro 0.1 0.1 mg TD DAILY #30 patch 05/14/17 mg/hr (*)] fentaNYL [Duragesic 50 MCG Patch 50 mcg TD Q72H 09/12/17 (*)] Medical Decision Making Other Provider: PHYSICIAN DOCUMENTATION: The patient was evaluated and managed by the Physician Transportation Superintendent and myself. I have reviewed the chart and agree with the findings and plan of care as documented. In addition, I examined the patient myself at 1340. History confirmed as nontraumatic worsening back pain. Physical findings as follows: No clonus, toes downgoing bilaterally, feels better after medication but still unable to go home. I am the secondary supervising physician. (Nam Car) - Data Points Laboratory Results: 09/12/17 09/12/17 09/12/17 13:30 13:30 13:30 WBC Pending RBC Pending Hgb Pending Hct Pending MCV Pending MCH Pending MCHC Pending RDW Pending Plt Count Pending MPV Pending Neut % (Auto) Pending Lymph % (Auto) Pending [place] % (Auto) Pending Eos % (Auto) Pending Baso % (Auto) Pending Nucleat RBC Rel Count Pending Absolute Neuts (auto) Pending Absolute Lymphs (auto) Pending Absolute Monos (auto) Pending Absolute Eos (auto) Pending Absolute Basos (auto) Pending Absolute Nucleated RBC Pending Immature Gran % Pending Immature Gran # Pending Sodium Pending Potassium Pending Chloride Pending Carbon Dioxide Pending Anion Gap Pending BUN Pending Creatinine Pending Estimated GFR Pending Glucose Pending Calcium Pending Total Bilirubin Pending Conjugated Bilirubin Pending Unconjugated Bilirubin Pending AST Pending ALT Pending Alkaline Phosphatase Pending Total Protein Pending Albumin Pending Lipase Pending Beta HCG, Qual Pending Medications Given: Discontinued Medications Dexamethasone (Decadron Injection) 8 mg IVP EDNOW ONE Stop: 09/12/17 12:54 Last Admin: 09/12/17 13:35 Dose: Not Given Diazepam (Valium) 5 mg IVP EDNOW ONE Stop: 09/12/17 12:54 Last Admin: 09/12/17 13:32 Dose: 5 mg Sodium Chloride (Ns) 2,000 mls @ 0 mls/hr IV ONCE ONE PRN Reason: Wide Open Stop: 09/12/17 12:53 Last Admin: 09/12/17 13:31 Dose: 2,000 mls Ketamine HCl (Ketamine) 20 mg IVP EDNOW ONE Stop: 09/12/17 12:54 Last Admin: 09/12/17 13:32 Dose: 20 mg Departure - Departure Disposition: [facility] Inpatient Acute Clinical Impression: Intractable low back pain Condition: Fair Referrals: FLACO KAUFFMAN [Primary Care Provider] - As per Instructions
[2017-09-12] MEDS: DEXAMETHASONE 4 MG/ML VIAL IVP ONE ×2 (13:32→13:35)
[2017-09-12 13:49] LABS: PLATELET COUNT 172 10^3/uL (150-400)
[2017-09-12] MEDS ORDERED: ONDANSETRON DISINTEGRATING 4 MG TAB PO PRN (15:58)
[2017-09-12] MEDS ORDERED: FLUTICASONE/SALMETER 250/50MCG DISKUS IH PRN (15:58)
[2017-09-12] MEDS ORDERED: PROMETHAZINE HCL 25 MG TAB PO PRN (15:58)
[2017-09-12] MEDS ORDERED: ONDANSETRON 4 MG/2 ML VIAL IVP PRN (16:04)
[2017-09-12] MEDS ORDERED: traMADol 50 MG TAB PO PRN (16:04)
[2017-09-12] MEDS ORDERED: ACETAMINOPHEN 325 MG TAB PO PRN (16:04)
[2017-09-12] MEDS ORDERED: PROMETHAZINE HCL 25 MG/ML INJ IVP PRN (16:04)
--- NOTE | 2017-09-12 16:04 | ASMTCMCOM ---
CM Note CM Note Notes: Pt's chart reviewed for D/C planning. Pt is a 42-y/o female who came to the ED c/o intractable back pain. Medical issues/surgery include spontaneous coronary artery disection, stents LAD x 7, obesity, hypercholesterolemia, reflux, gastric sleave, gastric sleave reposiioning, hysterectomy, tonsilectomy, back surgery, endometrial ablation, depression and anxiety. Pt D/C'ed from [facility] 04/2017; CM noted that at that time she lived with her mother and had no CM needs upon D/C. CM to follow. D/C Plan: TBD Date Signed: 09/12/2017 04:04 PM Electronically Signed By:Lucy Blandon
[2017-09-12] MEDS: SUCRALFATE 1 GM/10 ML UDCUP PO SCH ×2 (16:20→21:05)
[2017-09-12] MEDS: oxyCODONE IR 5 MG TAB PO PRN ×2 (16:23→22:26)
--- NOTE | 2017-09-12 16:41 | GHP ---
[f rep st] HISTORY AND PHYSICAL DATE OF ADMISSION: 09/12/2017 CHIEF COMPLAINT: Severe back pain. HISTORY: The patient is a 42-year-old female, who has 2 days of severe back pain. She traveled with her family to [place] for vacation on September 03. They spent 1 day at [facility], which was prolong ed and strenuous. That was 2 days ago. She did fine throughout that day, but they had a 6 a.m. flig ht home the next morning, which was yesterday. They were late for their plane and had to run with lovell itcases through the airport. As soon as she got on the plane, she had worsening back pain, which has been very severe and excruciating for the last 24 hours. She is no longer able to ambulate. Pain i s in the low-to-mid back. There is no lower extremity weakness or numbness. There is no fever. Jason n is a little worse on the right than the left. There is no radiation down the leg. She has no roz l or bladder incontinence. She is admitted to the hospital due to decreased ambulation and safety fo r discharge. She received IV ketamine in the emergency room, which did not help her pain, but just m dena her hallucinate and feel terrible. PAST MEDICAL HISTORY: 1. Chronic abdominal pain due to complications of a gastric sleeve, which she received in 2007, with multiple revisions required. She is still only able to eat baby food and requires an extensive medi cation regimen for symptom control. She plans to return to [place] where the original surgery was done for yet another revision in the near future. Due to chronic dehydration, she receives 2 L of IV fluid weekly at [facility] 2. Hiatal hernia, GERD and esophageal spasms. 3. Coronary dissection of the LAD requiring stents x7 with subsequent in-stent stenosis. 4. Possible fibromuscular dysplasia. 5. Hypertension. 6. Gestational diabetes. 7. Pulmonary hypertension. PAST SURGICAL HISTORY: Hysterectomy, cholecystectomy, lumbar back surgery. MEDICATIONS: Please see computer record for full detailed list. ALLERGIES: Penicillin, Keflex, Dilaudid, morphine, NSAIDs. SOCIAL HISTORY: No smoking. No alcohol. Lives with her daughters. 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 REVIEW OF SYSTEMS: Complete review of systems obtained. Review of systems negative regarding consti tutional, HEENT, GI, pulmonary, cardiovascular, , hematologic, endocrine, psych, except for positiv es as in the HPI. FAMILY HISTORY: Reviewed and noncontributory to presenting complaint. There is no family history fo r dissection. PHYSICAL EXAMINATION: GENERAL: A well-developed, well-nourished female, in no acute distress. DEIRDRE L SIGNS: Temperature is 37.3, pulse 63, blood pressure 136/90, satting 98% on room air. EYES: Norm al conjunctivae. Pupils are equal and reactive to light. ENT: Normal ears and nose. Hearing intac t. Normal teeth. Oropharynx is moist. NECK: Trachea midline. No thyromegaly. CHEST: Normal eff ort. Lungs are clear to auscultation bilaterally. CARDIOVASCULAR: Regular rate and rhythm. No mur mur. No lower extremity edema. ABDOMEN: Soft, nontender. No hepatosplenomegaly. SKIN: Warm, dry and intact. No rash. MUSCULOSKELETAL: No cyanosis or clubbing. Strength 5/5 upper and lower extr emities. NEURO: Cranial nerves intact. Normal sensation to light touch. PSYCH: Alert and oriente d x3. Normal mood and affect. Normal judgment and insight. Normal memory. LABORATORY DATA: White count 5.66, hematocrit 36.8, platelets 172. Sodium 138, potassium 3.8, chlor laila 110, bicarb 24, BUN 14, creatinine 0.6, glucose 99. test is negative. ASSESSMENT/PLAN: 1. Acute low back pain. She does not have any lower extremity neurological signs. She does have a history of a disk protrusion on previous MRI at [facility]. The patient is requesting a repeat MRI and a Ne urosurgery consultation. I have spoken with Neurosurgery and MRI is recommended. Given her collagen vascular issues and dissections, she is not to take NSAIDs or steroids. She has a history of narcot ic tolerance. Will prescribe IV fentanyl as needed. Will consult PT/OT. We could also consider dis section in her differential diagnosis of low back pain. However, my suspicion for this is currently quite low and I do think it is musculoskeletal. 2. Gastric sleeve complications. Further revision of her gastric sleeve is pending. She received 2 L of IV fluid in our emergency room as she was due for her weekly infusion. She has very complicate d medication regimen, which I will continue here. 3. Coronary artery dissection, status post stents x7 with subsequent in-stent stenosis. Continue as pirin and Plavix. 4. Continuous narcotic dependency. Continue home fentanyl patch and Patterson. 5. Gastroesophageal reflux disease and esophageal spasms. Continue Dexilant and Carafate. CODE STATUS: Full. ADMISSION STATUS: Will admit to observation. We will re-evaluate tomorrow regarding ongoing need fo r hospitalization. DVT PROPHYLAXIS: She is high risk. We will place on subcu Lovenox. /[id number]/MODL
--- NOTE | 2017-09-12 17:05 | GCON ---
[f rep st] CONSULTATION NEUROSURGERY CONSULTATION CHIEF COMPLAINT: Back pain. HISTORY OF PRESENT ILLNESS: The patient is a 42-year-old female patient who presented to the emergen cy room today complaining of severe low back pain 2 days after returning home from a trip to [place] where she had to move a lot of suitcases and walk around in an amusement park. She reports a prior h istory of a L5-S1 laminectomy in 1998. She states that since then she has had intermittent flare-ups of back pain and also intermittent numbness and tingling in her right leg, but she has never had any thing like this before. She waited to come into the emergency room because she expected her symptoms to improve on their own with her regular home medications. However, when symptoms did not improve a nd her pain was severe enough to limit her ability to function, she presented to the emergency room f or further evaluation. She denies any pain shooting down her legs. No bladder or bowel incontinence or numbness in the groin. No nausea or vomiting. On examination today, the patient is resting in b ed. She complains of continued persistent low back pain without radiculopathy. She states she has n umbness down the right leg on the outside of her foot into the last 3 toes. She denies any weakness. REVIEW OF SYSTEMS: Please see above-mentioned in the HPI. PAST MEDICAL HISTORY: History of chronic pain, spontaneous coronary artery dissection, 7 cardiac nanette nts, history of obesity, history of hypercholesterolemia, depression, anxiety, reflux, history of a g astric sleeve, tonsillectomy, lumbar laminectomy, 2 sections, cholecystectomy, endometrial a blation, hysterectomy, gastric sleeve repositioning, history of C difficile. Past medical history hi story is significant for chronic decreased oral intake after gastric sleeve surgery, hyperlipidemia. SOCIAL HISTORY: The patient is a nonsmoker. She does not use drugs. FAMILY HISTORY: Patient reports cardiac issues on her mother's side. Also had a sister with breast cancer and a history of colon cancer in the family. PHYSICAL EXAMINATION: VITAL SIGNS: Blood pressure is 136/90, heart rate 63, respirations 16, O2 sat uration is 98% on room air, temperature is 37.3 Celsius. GENERAL: This is a well-developed, well-no urished patient. She is in no acute distress. NEURO: Cranial nerves 2-12 are grossly intact. Her vital signs are stable. 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 Motor examination of the bilateral lower extremities is 5/5 for hip flexion, flexion and extension of the knee bilaterally. Plantar flexion and dorsiflexion on the left are 5/5 . On the right side, plantar flexion is 5/5, but dorsiflexion and EHL testing are diminished at appr oximately 4/5. The patient states she has some numbness down her right leg, otherwise has intact sen sation throughout the normal dermatomal distribution of her body. The patient has absent patellar re flexes on the right side. She has 2+ patellar reflexes on the left. Negative Babinski bilaterally. LABORATORY: White blood cells 5.66, red blood cells 4.20, hemoglobin 12.6, hematocrit 36.8, RDW is 1 2.3, platelet count is 172. Sodium is 138, potassium is 3.8, chloride is 110, carbon dioxide is 24, anion gap is 4, BUN is 14, creatinine 0.6, GFR greater than 60, glucose 99, calcium 9.0. Bilirubin 0 .4, conjugated bilirubin is 0.0, unconjugated bilirubin 0.4, AST is 19, ALT is 29, alkaline phosphata se is 52, total protein is 6.1, albumin is 3.1. Lipase is 25. Beta HCG is negative. IMAGING: None completed. ASSESSMENT: This is a 42-year-old female patient with intractable low back pain, admitted for pain c ontrol with a history of an L5-S1 laminectomy nearly 20 years ago. PLAN: I have seen and examined the patient this afternoon and discussed the patient with Dr. Boyle. At this time, the patient needs to undergo further diagnostic workup, including MRI of the lumbar s pine. She states that she is unable to have any steroids given her cardiac issues, so it looks like a steroid injection will not be an option for this patient. Based on the results of her imaging find ings, we will determine further treatment recommendations. In the meantime, patient should work with Physical Therapy and Occupational Therapy and will continue to work on pain management for her. Dr. Boyle will be seeing the patient later today. Please contact the neurosurgery service with any add itional questions or concerns. /[id number]/MODL
[2017-09-12] MEDS: fentaNYL 100 MCG/2 ML INJ IVP PRN ×2 (18:50→21:05)
[2017-09-12] MEDS: GABAPENTIN 300 MG CAP PO SCH (21:05)
[2017-09-12] MEDS: TOPIRAMATE 25 MG TAB PO SCH (21:05)
[2017-09-12] MEDS: clonazePAM 0.5 MG TAB PO PRN (21:05)
[2017-09-12] MEDS: SERTRALINE HCL 100 MG TAB PO SCH (21:06)
[2017-09-12] MEDS: LABETALOL HCL 100 MG TAB PO SCH (21:06)
[2017-09-12] MEDS: traZODone 100 MG TAB PO SCH (21:06)
[2017-09-12] MEDS: MONTELUKAST SODIUM 10 MG TAB PO SCH (21:06)
[2017-09-12] MEDS: POTASSIUM CL 10 MEQ TAB PO SCH (21:06)
[2017-09-12] MEDS: ASPIRIN EC 81 MG TAB PO SCH (21:06)
[2017-09-12] MEDS: CLOPIDOGREL BISULFATE 75 MG TAB PO SCH (21:06)
[2017-09-12] MEDS: PANTOPRAZOLE SODIUM 40 MG TAB PO SCH (21:06)
[2017-09-12] MEDS: PRAZOSIN HCL 1 MG CAP PO SCH (21:06)
[2017-09-13] MEDS: oxyCODONE IR 5 MG TAB PO PRN ×4 (04:18→21:33)
--- NOTE | 2017-09-13 07:45 | NEUSURGPN ---
Assessment/Plan: 42 y/o female with back and right posterior lateral leg pain. MRI demonstrates at T12/L1 an HNP with moderate canal stenosis; L4/5 annular tear mild NF narrowing, L5/S1 left sided disc bulge with with mild right and moderate to severe left NF narrowing. -Recommended optimize pain management -Will discuss further with Dr. Boyle this morning. Patient has limited conservative options with injections due to cardiac history. -Will continue to follow -Please notify NS with any change in neuro/motor exam Subjective: low back and right sided leg pain. Objective: NAD A&Ox3 MAEx4 5/5 and equal in BUE and BLE. Sensation +LT Neurosurgery Physical Exam - Vitals, I&O, Labs I and O 09/12/17 09/13/17 09/14/17 05:59 05:59 05:59 Intake Total 2500 Balance 2500 Weight 111.13 kg Intake: Oral (ml) 500 IV Infused (ml) 2000 Other: Intake Quantity Yes Sufficient Number of Voids Toilet 1 Vital Signs Temp Pulse Resp BP Pulse Ox 37.1 C 63 16 121/69 H 98 09/13/17 07:20 09/13/17 07:20 09/13/17 07:20 09/13/17 07:20 09/13/17 07:20 ICD10 Worksheet Patient Problems: Problems Problem Status Onset Intractable low back pain Acute C. difficile colitis Acute C. difficile diarrhea Acute 04/06/15 Chest pain Acute Colitis Acute Fever Acute Nausea & vomiting Acute
[2017-09-13] MEDS: fentaNYL 100 MCG/2 ML INJ IVP PRN ×3 (08:20→22:40)
[2017-09-13] MEDS: GABAPENTIN 300 MG CAP PO SCH ×2 (08:24→21:34)
[2017-09-13] MEDS: ENOXAPARIN 40 MG/0.4 ML SYR SC SCH (08:25)
[2017-09-13] MEDS: PYRIDOXINE HCL 100 MG TAB PO SCH (08:26)
[2017-09-13] MEDS: PANTOPRAZOLE SODIUM 40 MG TAB PO SCH ×2 (08:26→21:33)
[2017-09-13] MEDS: LABETALOL HCL 100 MG TAB PO SCH ×2 (08:26→21:33)
[2017-09-13] MEDS: SUCRALFATE 1 GM/10 ML UDCUP PO SCH ×3 (08:27→21:33)
[2017-09-13] MEDS: TOPIRAMATE 25 MG TAB PO SCH ×2 (08:27→21:34)
[2017-09-13] MEDS ORDERED: NITROGLYCERIN 0.1 MG/HR PATCH TD SCH (09:00)
[2017-09-13] MEDS ORDERED: MAGNESIUM SULF 2 GM/WATER 50 ML IV ONE (13:25)
--- NOTE | 2017-09-13 13:47 | ASMTCMCOM ---
CM Note CM Note Notes: Pt lives at home with two daughters, normally independent with ADLs. 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 PT recommenden outpatient PT, anticipate that pt will dc home independent when medically stable. CM available for any changes. DC Plan: Independent Date Signed: 09/13/2017 01:46 PM Electronically Signed By:Martha John RN
--- NOTE | 2017-09-13 13:58 | HOSPPROG ---
Hospitalist Progress Note Assessment/Plan: * Acute back pain * complicated by chronic pain meds for gastric sleeve issues * MRI is not much changed * nsg following * will increase muscle relaxer * cont heat * Gastric sleeve malfunction * CAD * pulm htn Subjective: back pain a little better. Objective: Vital Signs Temp Pulse Resp BP Pulse Ox 36.6 C 67 16 117/80 97 09/13/17 12:00 09/13/17 12:00 09/13/17 12:00 09/13/17 12:00 09/13/17 12:00 09/12/17 09/13/17 09/14/17 05:59 05:59 05:59 Intake Total 2500 Balance 2500 - Physical Exam Constitutional: no apparent distress, appears nourished, not in pain Eyes: anicteric sclera, EOMI Ears, Nose, Mouth, Throat: moist mucous membranes Cardiovascular: regular rate and rhythym Respiratory: no respiratory distress Skin: warm Neurologic: AAOx3, other (no apreciable le weakness) Psychiatric: interacting appropriately, not anxious, not encephalopathic, thought process linear ICD10 Worksheet Patient Problems: Problems Problem Status Onset Intractable low back pain Acute C. difficile colitis Acute C. difficile diarrhea Acute 04/06/15 Chest pain Acute Colitis Acute Fever Acute Nausea & vomiting Acute
[2017-09-13] MEDS: DOCUSATE SODIUM 100 MG CAP PO SCH ×2 (15:29→21:34)
[2017-09-13] MEDS: HYDROCODONE/APAP 5/325 TAB PO PRN (20:21)
[2017-09-13] MEDS: CLOPIDOGREL BISULFATE 75 MG TAB PO SCH (21:33)
[2017-09-13] MEDS: SERTRALINE HCL 100 MG TAB PO SCH (21:33)
[2017-09-13] MEDS: ZOLPIDEM TARTRATE 5 MG TAB PO PRN (21:33)
[2017-09-13] MEDS: POTASSIUM CL 10 MEQ TAB PO SCH (21:33)
[2017-09-13] MEDS: MONTELUKAST SODIUM 10 MG TAB PO SCH (21:34)
[2017-09-13] MEDS: clonazePAM 0.5 MG TAB PO PRN (21:34)
[2017-09-13] MEDS: traZODone 100 MG TAB PO SCH (21:34)
[2017-09-13] MEDS: PRAZOSIN HCL 1 MG CAP PO SCH (21:34)
[2017-09-13] MEDS: ASPIRIN EC 81 MG TAB PO SCH (21:34)
[2017-09-14] MEDS: HYDROCODONE/APAP 5/325 TAB PO PRN ×2 (04:55→19:30)
[2017-09-14 05:25] LABS: PLATELET COUNT 155 10^3/uL (150-400)
[2017-09-14] MEDS: oxyCODONE IR 5 MG TAB PO PRN ×4 (06:37→21:07)
--- NOTE | 2017-09-14 07:05 | NEUSURGPN ---
Assessment/Plan: 42 y/o female with back and right posterior lateral leg pain. Pain improved this morning with medications. MRI demonstrates at T12/L1 an HNP with moderate canal stenosis; L4/5 annular tear mild NF narrowing, L5/S1 left sided disc bulge with with mild right and moderate to severe left NF narrowing. -Recommended optimize pain management and continuing with PT/OT -Discussed MRI findings with patient and plan of care. -Will s/o this morning. She should follow up in 3-4 weeks post hospital. -Please notify NS with any change in neuro/motor exam -Discussed with Dr. Boyle Subjective: Pain improved with medications. Objective: NAD A&Ox3 MAEx4 5/5 and equal in BUE and BLE. Sensation +LT - Physician Discussed Patient with Dr.: Boyle Neurosurgery Physical Exam - Vitals, I&O, Labs I and O 09/13/17 09/14/17 09/15/17 05:59 05:59 05:59 Intake Total 2500 Balance 2500 Weight 111.13 kg Intake: Oral (ml) 500 IV Infused (ml) 2000 Other: Intake Quantity Yes Yes Sufficient Number of Voids Toilet 1 2 Vital Signs Temp Pulse Resp BP Pulse Ox 36.9 C 64 16 108/66 96 09/14/17 04:00 09/14/17 04:00 09/14/17 04:00 09/14/17 04:00 09/14/17 04:00 Laboratory Results 09/14/17 04:50 09/14/17 04:50 ICD10 Worksheet Patient Problems: Problems Problem Status Onset Intractable low back pain Acute C. difficile colitis Acute C. difficile diarrhea Acute 04/06/15 Chest pain Acute Colitis Acute Fever Acute Nausea & vomiting Acute
[2017-09-14] MEDS ORDERED: fentaNYL 50 MCG PATCH TD SCH (09:00)
[2017-09-14] MEDS: ENOXAPARIN 40 MG/0.4 ML SYR SC SCH (09:15)
[2017-09-14] MEDS: SUCRALFATE 1 GM/10 ML UDCUP PO SCH ×3 (09:16→21:07)
[2017-09-14] MEDS: DOCUSATE SODIUM 100 MG CAP PO SCH ×2 (09:17→21:07)
[2017-09-14] MEDS: MAGNESIUM OXIDE 400 MG TAB PO SCH (09:18)
[2017-09-14] MEDS: PANTOPRAZOLE SODIUM 40 MG TAB PO SCH ×2 (09:18→21:08)
[2017-09-14] MEDS: TOPIRAMATE 25 MG TAB PO SCH ×2 (09:18→21:09)
[2017-09-14] MEDS: GABAPENTIN 300 MG CAP PO SCH ×2 (09:18→21:08)
[2017-09-14] MEDS: LABETALOL HCL 100 MG TAB PO SCH ×2 (09:18→21:08)
[2017-09-14] MEDS: PYRIDOXINE HCL 100 MG TAB PO SCH (09:19)
[2017-09-14] MEDS: CYCLOBENZAPRINE 10 MG TAB PO SCH ×3 (10:39→21:08)
--- NOTE | 2017-09-14 10:50 | HOSPPROG ---
Hospitalist Progress Note Assessment/Plan: * Acute back pain * complicated by chronic pain meds for gastric sleeve issues * MRI is not much changed * better with increase tizanadine * will add flexeril * cont heat * encouraged ambulation * Gastric sleeve malfunction * on chronic pain meds * will be going to [place] to get revision * CAD/fibromuscular dysplasia * pulm htn Subjective: improving but not ready to go home Objective: Vital Signs Temp Pulse Resp BP Pulse Ox 37.1 C 59 L 12 121/74 H 95 09/14/17 07:55 09/14/17 07:55 09/14/17 07:55 09/14/17 07:55 09/14/17 07:55 Laboratory Results 09/14/17 04:50 09/14/17 04:50 09/13/17 09/14/17 09/15/17 05:59 05:59 05:59 Intake Total 2500 Balance 2500 - Physical Exam Constitutional: no apparent distress, appears nourished, not in pain Eyes: anicteric sclera, EOMI Ears, Nose, Mouth, Throat: moist mucous membranes Respiratory: no respiratory distress Neurologic: AAOx3 Psychiatric: interacting appropriately, not anxious, not encephalopathic, thought process linear ICD10 Worksheet Patient Problems: Problems Problem Status Onset Intractable low back pain Acute C. difficile colitis Acute C. difficile diarrhea Acute 04/06/15 Chest pain Acute Colitis Acute Fever Acute Nausea & vomiting Acute
[2017-09-14] MEDS: fentaNYL 100 MCG/2 ML INJ IVP PRN (12:15)
[2017-09-14] MEDS: traZODone 100 MG TAB PO SCH (21:08)
[2017-09-14] MEDS: POTASSIUM CL 10 MEQ TAB PO SCH (21:08)
[2017-09-14] MEDS: clonazePAM 0.5 MG TAB PO PRN (21:08)
[2017-09-14] MEDS: ZOLPIDEM TARTRATE 5 MG TAB PO PRN (21:08)
[2017-09-14] MEDS: MONTELUKAST SODIUM 10 MG TAB PO SCH (21:08)
[2017-09-14] MEDS: ASPIRIN EC 81 MG TAB PO SCH (21:08)
[2017-09-14] MEDS: CLOPIDOGREL BISULFATE 75 MG TAB PO SCH (21:08)
[2017-09-14] MEDS: PRAZOSIN HCL 1 MG CAP PO SCH (21:08)
[2017-09-14] MEDS: SERTRALINE HCL 100 MG TAB PO SCH (21:08)
[2017-09-15] MEDS: oxyCODONE IR 5 MG TAB PO PRN ×4 (04:45→18:07)
[2017-09-15] MEDS: ENOXAPARIN 40 MG/0.4 ML SYR SC SCH (08:24)
[2017-09-15] MEDS: DOCUSATE SODIUM 100 MG CAP PO SCH (08:24)
[2017-09-15] MEDS: PYRIDOXINE HCL 100 MG TAB PO SCH (08:24)
[2017-09-15] MEDS: LABETALOL HCL 100 MG TAB PO SCH (08:25)
[2017-09-15] MEDS: MAGNESIUM OXIDE 400 MG TAB PO SCH (08:25)
[2017-09-15] MEDS: GABAPENTIN 300 MG CAP PO SCH (08:25)
[2017-09-15] MEDS: PANTOPRAZOLE SODIUM 40 MG TAB PO SCH (08:25)
[2017-09-15] MEDS: CYCLOBENZAPRINE 10 MG TAB PO SCH ×2 (08:26→15:26)
[2017-09-15] MEDS: TOPIRAMATE 25 MG TAB PO SCH (08:26)
[2017-09-15] MEDS: SUCRALFATE 1 GM/10 ML UDCUP PO SCH ×2 (09:57→18:04)
[2017-09-15] MEDS ORDERED: POLYETHYLENE GLYCOL 3350 17 GM PKT PO ONE (12:40)
[2017-09-15 15:09] VITALS: BP 106/55
[2017-09-15] MEDS: HYDROCODONE/APAP 5/325 TAB PO PRN (15:12)
[2017-09-15] MEDS: clonazePAM 0.5 MG TAB PO PRN (15:26)
--- NOTE | 2017-09-15 18:18 | HOSPPROG ---
Hospitalist Progress Note Assessment/Plan: Prolonged service, direct patient care, in addition to the time spent preparing this patient's discharge, [id number] with the patient at bedside, from 9:45 a.m. Until 10:15 a.m. (30 min), addressing the following: -the patient presented with back pain and sciatica, and is most likely secondary to disc protrusion present on MRI -the patient reports that she has a follow-up with Dr. Villegas as an outpatient and she is also already established with an outpatient pain management practice -she reports that her home dosage of Vicodin has been inadequate in managing the pain and she has requested oxycodone immediate release, as this has been providing her with breakthrough pain control during this hospitalization -she reports improvement in overall functional mobility with increased dosage of tizanidine as needed Flexeril, but she has yet to get up and ambulate independently on this date -she reports that she has sets of stairs in the home and I have recommended the patient work with her physical therapist on stairs prior to deciding whether she is safe to discharge home today -the patient reports that she has not moved her bowels for 3 days, but this is normal for her -I have counseled the patient that moving once bowels in the hospital prior to discharge is generally recommended, particularly since she has been on increased opiates during this length of stay and has been less mobile, both of which can exacerbate constipation -the patient has received this advice but she would prefer to move her bowels at home and although she normally takes Colace in order to do so, I have recommended a laxative treatment and will provide her with 1 dose of MiraLax at this time to take home with Objective: Vital Signs Temp Pulse Resp BP Pulse Ox 37.1 C 77 18 106/55 L 93 09/15/17 15:06 09/15/17 15:06 09/15/17 15:06 09/15/17 15:06 09/15/17 15:06 Laboratory Results 09/14/17 04:50 09/14/17 04:50 09/14/17 09/15/17 09/16/17 05:59 05:59 05:59 Intake Total 850 Balance 850 ICD10 Worksheet Patient Problems: Problems Problem Status Onset Fever Acute Colitis Acute C. difficile colitis Acute C. difficile diarrhea Acute 04/06/15 Chest pain Acute Nausea & vomiting Acute Intractable low back pain Acute
--- NOTE | 2017-09-15 18:25 | PDDCSUM ---
Discharge Summary Discharge Summary: DISCHARGE SUMMARY FOLLOW-UP ITEMS: Outpatient pain reassessment with Dr. Villegas DATE OF ADMISSION: 09/12/2017 DATE OF DISCHARGE: 09/15/2017 DISCHARGE DIAGNOSES: 1. Acute lower back pain 2. T12-L1 moderate to severe disc protrusion on the left 3. Chronic pain with continuous opiate and benzodiazepine dependency 4. Morbid obesity CONSULTATIONS: Neurosurgery PROCEDURES / IMAGING: MRI demonstrating T12-L1 moderate to severe left-sided disc protrusion, which is not particular change from previous imaging studies CHIEF COMPLAINT: Acute back pain SUBJECTIVE: Patient reports ongoing pain but is manageable and she reports that she has safely ambulated with the therapy modalities PHYSICAL EXAM ON DISCHARGE: Systolic blood pressure is 110-130, heart rate 60-70, afebrile overnight, satting well on room air, alert awake oriented x3, no apparent distress, lungs are clear to auscultation bilaterally, heart rhythm is regular, abdomen is soft , nontender, bowel sounds are present, lower extremities demonstrate full sensation, motor strength 5/5 bilaterally LABS ON DISCHARGE: CBC normal, basic metabolic profile normal HOSPITAL COURSE BY PROBLEM: The patient presented with acute back pain most likely secondary to disc protrusion which is most likely secondary to her morbid obesity. This was an acute exacerbation of a chronic issue, and the patient has a chronic pain diagnosis with continuous opiate and benzodiazepine dependency. This made pain management particularly challenging. The patient's overall mobility had been significantly compromised, but her back imaging demonstrated no a changes from previous images. Neurosurgery was seen in consultation, and they recommended mobilization, increased muscle relaxants for pain control and outpatient follow- up. The patient's tizanidine was increased from 4 mg as needed to 6 mg as needed, Flexeril was added p.r.n., and breakthrough opiate pain medication was modified from Vicodin to oxycodone immediate release. These medication adjustments in addition to ongoing heat pad resulted in improvement in pain control, increased mobility, in a protracted fashion. It took every hour of the patient's care from presentation until discharge to safely get her mobilized , working with physical and occupational therapy, and experiencing adequate pain management. After repeat therapy assessments on the date of discharge, the patient felt safe discharging home and they believed that she would be successful with stairs. I reassessed the patient on the afternoon of discharge , for a 2nd time, and she felt comfortable discharging with the aforementioned medication adjustments. DISCHARGE MEDICATIONS: Please see official discharge medication reconciliation sheet in chart , hold Vicodin while utilizing oxycodone immediate release for breakthrough pain management, 20 tabs prescribed, tizanidine increased to 6 mg up to 3 times daily scheduled for 10 days, then return to the home dosage of 4 mg 3 times daily, Flexeril 10 mg as needed up to 3 times daily, 30 tabs prescribed, MiraLax to be used at home. DISCHARGE INSTRUCTIONS: Please follow up with Dr. 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
== END 2017-09-15 18:40 | disposition home or self-care (01) ==
LOC: F3E 14:45
PROVIDERS: ADMIT Internal Medicine; ATTEND Internal Medicine
DX: M51.25 Other intervertebral disc displacement, thoracolumbar region (principal); G89.29 Other chronic pain; F11.20 Opioid dependence, uncomplicated; F13.20 Sedative, hypnotic or anxiolytic dependence, uncomplicated; E66.01 Morbid (severe) obesity due to excess calories
CPT/HCPCS: 72148; 96374; 96375; 97110; 97116; 97161; 97166; 97530; 97535; 99285; G0378; J1100; J1650; J3010; J3360; J3475

== ENCOUNTER 2018-02-15 20:34 | Observation (INO) | payer OTHER ==
--- NOTE | 2018-02-15 21:01 | EDPHY ---
H & P Smoking Status: Never smoked Time Seen by Provider: 02/15/18 21:00 HPI/ROS: CHIEF COMPLAINT: Feeding tube complication HISTORY OF PRESENT ILLNESS: The patient is a 42-year-old female here with complaint of nasal jejunal tube malfunctioning for the last 2 days. She has a long history of complications status post gastric sleeve in 2009. She has had numerous surgeries and ultimately has and azo jejunal tube placed at the beginning of January 2018 in [place]. She is post to follow up in [place] to have further surgical repairs but unfortunately the and J-tube stopped working around 2 days ago. She has had no fever, vomiting. She does not believe the tube was displaced. REVIEW OF SYSTEMS: Constitutional: No fever, no chills. Eyes: No discharge. ENT: No sore throat. Cardiovascular: No chest pain, no palpitations. Respiratory: No cough, no shortness of breath. Gastrointestinal: No abdominal pain, no vomiting. Genitourinary: No hematuria. Musculoskeletal: No back pain. Skin: No rashes. Neurological: No headache. (Jaime Ross) Physical Exam: General Appearance: Alert and no distress. ENT: normal dentition. No tonsillar exudate or swelling. Eyes: Pupils equal and round no injection. Respiratory: Chest is nontender, lungs are clear to auscultation. Cardiac: regular rate and rhythm. No lower extremity edema Gastrointestinal: Abdomen is soft and nontender, no masses, bowel sounds normal. Musculoskeletal: Neck is supple and nontender. Extremities have full range of motion and are nontender without deformity Skin: No rashes or lesions. And J-tube in place to nasopharynx Neuro: Cranial nerves grossly intact. Ambulatory. (Jaime Ross) Constitutional: Initial Vital Signs Temperature (C) 37.1 C 02/15/18 20:38 Heart Rate 67 02/15/18 20:38 Respiratory Rate 20 02/15/18 20:38 Blood Pressure 114/72 02/15/18 20:38 O2 Sat (%) 94 02/15/18 20:38 Allergies/Adverse Reactions: cephalexin monohydrate [From Keflex] Allergy (Verified 02/15/18 20:37) epinephrine Allergy (Verified 02/15/18 20:37) hydromorphone HCl [From Dilaudid] Allergy (Verified 02/15/18 20:37) Other-Enter Comments ibuprofen Allergy (Verified 02/15/18 20:37) morphine Allergy (Verified 02/15/18 20:37) NSAIDS (Non-Steroidal Anti-Inflamma Allergy (Verified 02/15/18 20:37) Penicillins Allergy (Verified 02/15/18 20:37) tape (plastic) Allergy (Uncoded 02/15/18 20:37) Rash Home Medications: Medication Instructions Recorded Aspirin EC [Aspirin EC 81 mg (*)] 81 mg PO HS 12/10/13 Clopidogrel Bisulfate [Plavix (*)] 75 mg PO HS 12/10/13 Dexlansoprazole [Dexilant] 60 mg PO BID 12/10/13 Ergocalciferol [Vitamin D2 (*)] 50,000 unit PO TU 12/10/13 Promethazine HCl [Phenergan 25mg 25 mg PO Q6 PRN 12/10/13 (*)] Pyridoxine HCl [Vitamin B-6 100 mg 100 mg PO DAILY 12/10/13 (*)] Sertraline HCl [Zoloft 100mg (*)] 250 mg PO HS 12/10/13 Topiramate [Topamax] 50 mg PO BID 12/10/13 Zolpidem Tartrate [Ambien 10 mg] 10 mg PO HS PRN 12/10/13 Herbals/Supplements -Info Only 1 ea PO DAILY 03/14/15 Labetalol HCl [Trandate 100 mg (*)] 100 mg PO BID 03/14/15 Ondansetron Odt [Zofran Odt 4 mg 4 - 8 mg PO Q6 PRN 03/14/15 (*)] Sucralfate [Carafate 1gm/10ml Oral 1 gm PO TID 03/14/15 Liquid (*)] Potassium Cl [Klor-Con 10 meq (RX)] 10 meq PO HS 04/06/15 Gabapentin [Neurontin 300 MG (*)] 300 mg PO BID 04/07/15 Acetaminophen [Tylenol 325mg (*)] 650 mg PO Q4 PRN #0 tab 04/09/15 Albuterol [Proventil Inhaler HFA 1 - 2 puffs IH Q4H PRN 05/12/17 (*)] Fluticasone/Salmeter 250/50Mcg 1 puffs IH BID PRN 05/12/17 [Advair 250/50 (*)] Hydrocodone/Acetaminophen [[place] 1 each PO TID PRN 05/12/17 7.5-325 Tablet] Montelukast Sodium [Singulair 10 10 mg PO HS 05/12/17 mg (*)] Prazosin HCl [Minipress 1mg (*)] 1 mg PO HS 05/12/17 clonazePAM [Klonopin (*)] 0.5 mg PO TID PRN 05/12/17 traZODone [traZODONE 100MG (*)] 100 mg PO HS 05/12/17 Nitroglycerin [Transderm-Nitro 0.1 0.1 mg TD DAILY #30 patch 05/14/17 mg/hr (*)] fentaNYL [Duragesic 50 MCG Patch 50 mcg TD Q72H 09/12/17 (*)] Cyclobenzaprine [Flexeril 10 MG 10 mg PO TID PRN #30 tab 09/15/17 (*)] Tizanidine HCl 6 mg PO TID #90 capsule 09/15/17 oxyCODONE IR [Oxycodone Ir (*)] 5 - 10 mg PO Q3HRS PRN #20 tab 09/15/17 Medical Decision Making - Diagnostics Imaging Results: Imaging Impressions Abdomen X-Ray 02/15/18 22:00 Impression: Excellent feeding tube placement in the proximal jejunum. Procedures: Attempted to flushed NJ-tube but was unsuccessful (Jaime Ross) ED Course/Re-evaluation: The patient was evaluated and managed by the physician's marketing operations assistant. My cosignature indicates that I reviewed the chart and I agree with the findings and plan of care as documented. I am the secondary supervising physician. ( Heike Barone) Differential Diagnosis: Patient here with NJ tube dysfunction. We attempted to flush the tube in the ER for unsuccessful. Labs are unremarkable and she is nontoxic-appearing a discuss case with IR who agrees to see the patient tomorrow morning to attempt to replace NJ tube. Patient is agreeable with being admitted this evening to be seen tomorrow morning for replacement of the tube. (Jaime Ross) - Data Points Laboratory Results: Laboratory Results 02/15/18 22:15 02/15/18 21:09 02/15/18 02/15/18 22:15 21:09 WBC 5.72 10^3/uL 10^3/uL (3.80-9.50) RBC 4.17 10^6/uL L 10^6/uL (4.18-5.33) Hgb 12.2 g/dL L g/dL (12.6-16.3) Hct 35.8 % L % (38.0-47.0) MCV 85.9 fL fL (81.5-99.8) MCH 29.3 pg pg (27.9-34.1) MCHC 34.1 g/dL g/dL (32.4-36.7) RDW 12.6 % % (11.5-15.2) Plt Count 160 10^3/uL 10^3/uL (150-400) MPV 9.2 fL fL (8.7-11.7) Neut % (Auto) 56.7 % % (39.3-74.2) Lymph % (Auto) 33.2 % % (15.0-45.0) [place] % (Auto) 7.3 % % (4.5-13.0) Eos % (Auto) 2.3 % % (0.6-7.6) Baso % (Auto) 0.3 % % (0.3-1.7) Nucleat RBC Rel Count 0.0 % % (0.0-0.2) Absolute Neuts (auto) 3.24 10^3/uL 10^3/uL (1.70-6.50) Absolute Lymphs (auto) 1.90 10^3/uL 10^3/uL (1.00-3.00) Absolute Monos (auto) 0.42 10^3/uL 10^3/uL (0.30-0.80) Absolute Eos (auto) 0.13 10^3/uL 10^3/uL (0.03-0.40) Absolute Basos (auto) 0.02 10^3/uL 10^3/uL (0.02-0.10) Absolute Nucleated RBC 0.00 10^3/uL 10^3/uL (0-0.01) Immature Gran % 0.2 % % (0.0-1.1) Immature Gran # 0.01 10^3/uL 10^3/uL (0.00-0.10) Sodium 137 mEq/L mEq/L (135-145) Potassium 3.5 mEq/L mEq/L (3.5-5.2) Chloride 111 mEq/L H mEq/L (97-110) Carbon Dioxide 22 mEq/l mEq/l (22-31) Anion Gap 4 mEq/L L mEq/L (6-14) BUN 7 mg/dL mg/dL (7-23) Creatinine 0.6 mg/dL mg/dL (0.6-1.0) Estimated GFR > 60 Glucose 82 mg/dL mg/dL (70-100) Calcium 8.9 mg/dL mg/dL (8.5-10.4) Medications Given: Discontinued Medications Sodium Chloride (Ns) 1,000 mls @ 0 mls/hr IV EDNOW ONE; Wide Open PRN Reason: Protocol Stop: 02/15/18 21:23 Last Admin: 02/15/18 22:13 Dose: 1,000 mls Departure - Departure Referrals: FLACO KAUFFMAN [Primary Care Provider] - As per Instructions
[2018-02-15] MEDS ORDERED: NS 1,000 ML IV ONE (21:22)
[2018-02-15] MEDS ORDERED: LIDOCAINE/PRILOCAINE 1 EACH CRTUBE TP ONE (21:58)
[2018-02-15 22:24] LABS: PLATELET COUNT 160 10^3/uL (150-400)
[2018-02-16] MEDS ORDERED: ACETAMINOPHEN 325 MG TAB PO PRN (01:59)
[2018-02-16] MEDS ORDERED: ONDANSETRON DISINTEGRATING 4 MG TAB PO PRN (01:59)
[2018-02-16] MEDS ORDERED: ALBUTEROL 3 ML DEYVIAL IH PRN (01:59)
[2018-02-16] MEDS ORDERED: ONDANSETRON 4 MG/2 ML VIAL IVP PRN (01:59)
[2018-02-16] MEDS: NS 1,000 ML IV SCH ×2 (02:29→12:03)
[2018-02-16] MEDS ORDERED: NITROGLYCERIN 0.4 MG BTL SL PRN (02:32)
[2018-02-16] MEDS ORDERED: FLUTICASONE/SALMETER 250/50MCG DISKUS IH PRN (02:32)
[2018-02-16] MEDS ORDERED: ALBUTEROL 60 PUFFS/8 GM MDI IH PRN (02:32)
[2018-02-16] MEDS ORDERED: PROMETHAZINE HCL 25 MG TAB PO PRN (02:32)
[2018-02-16] MEDS ORDERED: MONTELUKAST SODIUM 10 MG TAB PO SCH (02:37)
[2018-02-16] MEDS ORDERED: ZOLPIDEM TARTRATE 5 MG TAB PO PRN (02:48)
[2018-02-16] MEDS ORDERED: PANTOPRAZOLE SODIUM 40 MG TAB PO SCH (03:30)
[2018-02-16] MEDS: SERTRALINE HCL 100 MG TAB PO SCH ×2 (03:40→10:24)
[2018-02-16] MEDS: GABAPENTIN 300 MG CAP PO SCH ×2 (03:40→10:25)
[2018-02-16] MEDS: LABETALOL HCL 100 MG TAB PO SCH ×2 (03:40→10:32)
[2018-02-16] MEDS: POTASSIUM CL 10 MEQ TAB PO SCH ×2 (03:41→10:42)
[2018-02-16] MEDS: TOPIRAMATE 25 MG TAB PO SCH ×2 (03:41→10:25)
[2018-02-16] MEDS: SUCRALFATE 1 GM/10 ML UDCUP PO SCH ×4 (03:41→17:51)
--- NOTE | 2018-02-16 05:42 | GHP ---
DATE OF ADMISSION: 02/15/2018 SOURCE: Patient provides history, is very reliable. She brings her records with her from [place] where she was recently evaluated by the providers there regarding her history of a gastric sleeve and possible repair. She has had numerous complications related to her gastric sleeve. She had an NG tube placed prior to her returning home from [place]. Initial attempts to do this with assistance of fluoroscopy were not possible after multiple attempts and patient subsequently had to undergo an EGD-guided placement of the NJ tube despite having had a normal-appearing barium swallow study. Her EGD showed distal esophageal grade C, but was not biopsied because of Plavix. A 3-4 cm hiatal hernia was seen without any evidence of erosion or ulceration. Gastric tube area was healed without diverticular gastritis. Noted was milder bile present. Pylorus was noted to be open but slightly angulated suggesting an extraluminal adhesion. The patient has subsequently been doing bolus feeds with mostly Premier protein supplement and occasionally Ensure. Two days ago she was not able to give herself any feeds through the tube. She presents to the emergency department today with this complaint. She reports some mild chills, but otherwise has not had any additional complaints. The patient reports that her surgeon in [place] had recommended a hiatal hernia repair, however , prior to this and after removal of her NJ tube, after this a manometry study was recommended prior to proceeding with her surgery. The patient is able to tolerate most of her pills. REVIEW OF SYSTEMS: Ten systems reviewed, otherwise negative except as noted above. ALLERGIES: Keflex, epinephrine, Dilaudid, NSAIDs, morphine, penicillin. HOME MEDICATIONS: [place] 5/325 one tab p.o. b.i.d. p.r.n., fentanyl 50 mcg patch q.72 hours, Singulair 10 mg p.o. at h.s., labetalol 100 mg p.o. b.i.d., aspirin 81 mg at h.s., albuterol HFA 1-2 puffs inhaled q.4 hours p.r.n., Wellbutrin 150 mg p.o. daily, Ambien 10 mg p.o. 8 h.s. p.r.n., sucralfate 1 g p.o. four times daily, potassium chloride 10 mEq p.o. four times daily, Dexilant 60 mg p.o. b.i.d., Topamax 50 mg p.o. b.i.d., sertraline 100 mg p.o. b.i.d., Advair 250/50 mcg inhaled b.i.d., Klonopin 1 mg p.o. t.i.d. p.r.n., Zofran ODT 4 mg p.o. q.6 hours p.r.n., gabapentin 300 mg p.o. b.i.d., Phenergan 25 mg p.o. q.6 hours p.r.n., nitroglycerin sublingual 0.4 mg p.r.n., Plavix 75 mg p.o. at h.s. 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 difficile in 2016, migraine headaches. PAST SURGICAL HISTORY: Significant for gastric sleeve with attempted revision, tonsillectomy, adenoidectomy, back surgery, x2, cholecystectomy, endometrial ablation, hysterectomy. FAMILY HISTORY: Negative for GI complications. Father with obesity. Mother with hypertension. Sister with cancer. SOCIAL HISTORY: Patient lives with her family and children. 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 She does not smoke, drink, or utilize any illicit drugs. CODE STATUS: Full. PHYSICAL EXAMINATION: VITAL SIGNS: Upon arrival to the emergency department, blood pressure was 114/72, heart rate 67, respiratory rate 20, O2 saturation 94 % with a temperature of 37.1. Currently available vital signs: Blood pressure is 137/71, heart rate 71, respiratory rate 16, O2 saturation 96% on room air, temperature 36.7. GENERAL: No acute distress. Pleasant, adult female is lying comfortably in bed. HEAD: Normocephalic, atraumatic. EYES: Extraocular muscles grossly intact. Pupils are symmetric. Patient is wearing glasses. No scleral icterus, conjunctival injection. ENT: Mucous membranes appear moist. Dentition in good condition. NECK: Supple, trachea midline. CV : Regular rate and rhythm. No murmurs, rubs, or gallops appreciated. RESPIRATORY: Unlabored breathing. LUNGS: Clear to auscultation bilaterally. No wheezes, rales, or rhonchi. ABDOMEN: Obese, soft, nontender to palpation. No rebound, guarding, or masses appreciated. Positive bowel sounds. : No suprapubic tenderness to palpation. No Berg catheter in place. EXTREMITIES: No cyanosis, clubbing, or edema appreciated. Patient with 2+ pedal pulses. She moves all extremities. Strength grossly intact. NEURO: Grossly nonfocal. No facial drooping. Moves all extremities as noted above. PSYCH: Thought process, content and questions are all appropriate. Patient is pleasant and cooperative. LABORATORY STUDIES: WBC is 5.72, H and H 12.2 and 35.8, MCV of 85.9, platelet count is 160, no bands. Sodium is 137, potassium is 3.5, chloride 111, CO2 22, anion gap of 4, BUN 7, creatinine 0.6 GFR greater than 60, glucose 82, calcium is 8.9. IMAGING: Abdominal x-ray: Feeding tube present in the tip of the proximal jejunum. No bowel obstruction. Surgical anastomosis in the esophagogastric junction and upper stomach region. Coronary stents over the left heart. ASSESSMENT AND PLAN: Pleasant 42-year-old female with a history of gastric sleeve with revision, now with a nasal jejunal feeding tube in place, history of coronary artery dissection on Plavix and aspirin, obesity, depression/anxiety , gastroesophageal reflux disease, who presents to the emergency department today with complaints of feeding tube malfunction. 1. Occluded feeding tube. Patient is not able to flush or bolus her nutritional supplements. She did have some difficulties previously with a fluoroscopically placed NJ tube due to evidence of adhesions at the pyloric junction which was difficult due to angulation to pass the feeding tube with fluoroscopic guidance. She did require EGD placement prior to returning back to [place]. The patient also concerned regarding the need for her manometry study while her NJ tube is removed. Advised that I am unsure if manometry is completed here, but we will additionally discuss with IR or GI tomorrow as per day team. Also advised patient that this may be something that she needs to continue to pursue on outpatient basis preoperatively. If not available here. 2. Hiatal hernia. Continue proton pump inhibitor. 3. Anemia, likely of chronic disease in setting of a normal absorption. The patient without any evidence of active bleeding. Continue to monitor CBC. 4. Obesity status post gastric sleeve with revision and complications. Plan is as noted above. Patient with plan for hiatal hernia repair at some point in the near future. 5. Anxiety/depression. Resume patient's home medications including her clonazepam, Wellbutrin, and Zoloft. 6. Chronic pain. Continue patient's fentanyl. [place] p.r.n. 7. History of coronary artery dissection, status post stenting. Continue patient's aspirin and Plavix after procedure. 8. Gastroesophageal reflux disease. Continue patient's sucralfate and PPI per formulary. 9. Asthma. Continue patient's Advair, albuterol nebulizer or Singulair. 10. History of migraines. Continue Topamax suppression. 11. Chronic pain as noted above. Also continue patient's gabapentin. FLUIDS, ELECTROLYTES AND NUTRITION: IV fluids overnight for supplementation while patient is n.p.o. Electrolytes adequate. Did not require replacement. PROPHYLAXIS: SCDs. Holding anticoagulation pending her procedure as well as resuming her Plavix and aspirin in the morning. CODE STATUS: Full. DISPOSITION: Patient admitted to observation status on the med/surg floor pending replacement of her NJ tube and possible consideration for manometry if available here. /[id number]/MODL MTDD
[2018-02-16] MEDS ORDERED: ASPIRIN EC 81 MG TAB PO SCH (09:00)
[2018-02-16] MEDS ORDERED: buPROPion XL 150 MG TAB PO SCH (09:00)
[2018-02-16] MEDS ORDERED: CLOPIDOGREL BISULFATE 75 MG TAB PO SCH (09:00)
[2018-02-16] MEDS: POTASSIUM CL 20 MEQ/15 ML UDCUP PO SCH ×4 (10:28→17:51)
[2018-02-16] MEDS: clonazePAM 0.5 MG TAB PO PRN ×2 (10:35→17:51)
--- NOTE | 2018-02-16 10:38 | HOSPPROG ---
Hospitalist Progress Note Assessment/Plan: 42yo F with remote gastric sleeve with numerous complications here with obstructed nasojejunal tube. Her PO caloric intake is insufficient and thus in need of tube feeding. 1. Obstructed NJ tube: Unclear where this is obstructed. X-ray shows "excellent " tube placement in proximal jejunum. - Discussed with pharmacy, will try flushing with pancreatic enzymes+bicarb - IR initially consulted but due to nature of process recommend consulting GI. I will get in touch with on-call GI Dr George. May need to consider endoscopic re-placement of NJ - Continue IVF 2. H/o sleeve gastrectomy and pyloroplasty: Complicated by angulation of pylorus thought due to extraluminal adhesion. This has lead to inability to tolerate PO due to nausea and vomiting, thus prompting placement of NJ tube on 01/21. 3. Hiatal hernia: Possibly contributing to symptoms. - Her GI physician in [place] was planning repair. They are recommending manometry for surgical planning. Does not appear that this can be done as inpatient. Additionally, this will have to be done without NJ tube 4. Esophagitis: Continue PPI 5. SCAD: Holding plavix, continue aspirin 6. Depression/anxiety: Continue home meds 7. Chronic pain: Oxycodone PRN, gabapentin 8. Asthma: Continue home inhalers, no exacerbation. 9. Migraine headaches: On topamax VTE ppx: SCDs Code: full Diet: NPO Dispo: Continue as obs, possibly dc later today if able to get NJ tube to work. If will stay, will switch to inpatient Subjective: Upper abdominal pain. NJ tube not flushing. No n/v or fevers. Objective: Vital Signs Temp Pulse Resp BP Pulse Ox 36.8 C 64 16 136/82 H 97 02/16/18 09:02 02/16/18 09:02 02/16/18 09:02 02/16/18 09:02 02/16/18 09:02 02/15/18 02/16/18 02/17/18 05:59 05:59 05:59 Intake Total 300 Balance 300 - Physical Exam Constitutional: no apparent distress, obese, other (nasojejunal tube in place) Eyes: PERRL, anicteric sclera, EOMI Ears, Nose, Mouth, Throat: moist mucous membranes, hearing normal, ears appear normal, no oral mucosal ulcers Cardiovascular: regular rate and rhythym, no murmur, rub, or gallop Respiratory: no respiratory distress, no rales or rhonchi, clear to auscultation Gastrointestinal: normoactive bowel sounds, no palpable masses, tenderness ( upper quadrants), No hepatosplenomegally, No distension Genitourinary: no bladder fullness, no bladder tenderness, no renal bruits Skin: no rashes or abrasions, no fluctuance, no induration Musculoskeletal: full muscle strength, no muscle tenderness, normal joint ROM Neurologic: AAOx3, sensation intact bilaterally Psychiatric: interacting appropriately, not anxious, not encephalopathic, thought process linear ICD10 Worksheet Patient Problems: Problems Problem Status Onset C. difficile colitis Acute C. difficile diarrhea Acute 04/06/15 Chest pain Acute Colitis Acute Fever Acute Intractable low back pain Acute Nausea & vomiting Acute
[2018-02-16] MEDS ORDERED: PANCREASE FOR DOBHOFF 50 ML BTL TUBE ONE (10:45)
[2018-02-16] MEDS: oxyCODONE IR 5 MG TAB PO PRN ×4 (11:07→17:52)
--- NOTE | 2018-02-16 12:31 | ASMTCMCOM ---
CM Note CM Note Notes: CM chart review for discharge planning: Patient is 42 y/o female admitted via [facility] ED for complications/blockage of nasojejunal tube. NJ tube placed to support caloric intake due to complications from gastric sleeve in 2009. Past medical history includes hiatal hernia, depression, chronic pain, asthma, migraine headaches. Patient to receive treatment to attempt to clear obstruction, if NJ tube functions properly, patient will likely discharge home independently today. CM to follow. D/C Plan: [facility]. Date Signed: 02/16/2018 12:30 PM Electronically Signed By:Ana Francis
[2018-02-16 16:07] VITALS: BP 144/88
== END 2018-02-16 18:07 | disposition home or self-care (01) ==
LOC: F1N 23:45
PROVIDERS: ADMIT Family Medicine; ATTEND Internal Medicine
PROC: 3E1G78Z Irrigation of Upper GI using Irrigating Substance, Via Natural or Artificial Opening (ICD-10-PCS; principal; 2018-02-16)
DX: T85.598A Other mechanical complication of other gastrointestinal prosthetic devices, implants and grafts, initial encounter (principal); K31.89 Other diseases of stomach and duodenum; K20.9 Esophagitis, unspecified; K44.9 Diaphragmatic hernia without obstruction or gangrene; E86.9 Volume depletion, unspecified; D64.9 Anemia, unspecified; E66.9 Obesity, unspecified; Z68.37 Body mass index [BMI] 37.0-37.9, adult; F32.9 Major depressive disorder, single episode, unspecified; F41.9 Anxiety disorder, unspecified; K21.9 Gastro-esophageal reflux disease without esophagitis; I25.10 Atherosclerotic heart disease of native coronary artery without angina pectoris; G89.29 Other chronic pain; J45.909 Unspecified asthma, uncomplicated; G43.909 Migraine, unspecified, not intractable, without status migrainosus; Z79.02 Long term (current) use of antithrombotics/antiplatelets; Z79.891 Long term (current) use of opiate analgesic; Z86.19 Personal history of other infectious and parasitic diseases; Z86.79 Personal history of other diseases of the circulatory system; Z95.5 Presence of coronary angioplasty implant and graft; Z98.0 Intestinal bypass and anastomosis status; Z98.84 Bariatric surgery status; Z88.0 Allergy status to penicillin
CPT/HCPCS: 74018; 96361; 96374; 99285; G0378; J2405

== ENCOUNTER 2018-03-31 21:47 | Observation (INO) | payer OTHER ==
--- NOTE | 2018-03-31 21:59 | EDPHY ---
H & P Stated Complaint: Chest pain x1k, took "many nitro this week", GI issues, shoulder pain Time Seen by Provider: 03/31/18 21:58 HPI/ROS: HPI CHIEF COMPLAINT: Chest pain HISTORY OF PRESENT ILLNESS: 42-year-old female with a complex medical history including coronary artery dissection in 2005 requiring stenting, and then subsequent re-stenting she reports to me she has 7-8 stents in her LAD. She reports to me that she has been catheterization 19 times. She presents to the emergency room with chest pain this evening. Patient reports over the past week she has had chest pain. It has been intermittent. Today it was worse she reports she took multiple nitroglycerin 6- 8 nitroglycerines that gives her 15-20 minutes relief of pain in that her pain returns. She also reports that she had some bilateral shoulder pain with this. She decided come the emergency room due to ongoing pain. She denies pleuritic pain or shortness of breath. She also states she suffers from chronic abdominal pain nausea vomiting. States she has chronic epigastric abdominal pain. Patient states she has been compliant with her aspirin and Plavix Her main concern this evening is for chest pain. She arrives to ER room 7 where I did Greet her. She upon arrival had a EKG that shows no acute ischemic event. Patient reports to me her last cardiac catheterization was in 2017. Her well drill operator is Kishan Bowman, and Brenda. Past Medical History: Significant medical history for coronary artery dissection status post stents, gastric sleeve, pyloroplasty, soft chest, hiatal hernia, migraine headaches, chronic pain Past Surgical History: Cardiac catheterization times 19. Multiple cardiac stents. Gastric sleeve. NJ tube. Social History: Denies drugs alcohol tobacco. Family History: Noncontributory ROS REVIEW OF SYSTEMS: 10 Systems were reviewed and negative with the exception of the elements mentioned in the history of present illness. Exam Constitutional triage nursing summary reviewed, vital signs reviewed, awake/ alert. Eyes normal conjunctivae and sclera, EOMI, PERRLA. HENT normal inspection, atraumatic, moist mucus membranes, no epistaxis, neck supple/ no meningismus, no raccoon eyes. Respiratory clear to auscultation bilaterally, normal breath sounds, no respiratory distress, no wheezing. Cardiovascular rate normal, regular rhythm, no murmur, no edema, distal pulses normal. Gastrointestinal soft, non-tender, no rebound, no guarding, normal bowel sounds, no distension, no pulsatile mass. Genitourinary no CVA tenderness. Musculoskeletal no midline vertebral tenderness, full range of motion, no calf swelling, no tenderness of extremities, no meningismus, good pulses, neurovascularly intact. Skin pink, warm, & dry, no rash, skin atraumatic. Neurologic awake, alert and oriented x 3, AAOx3, moves all 4 extremities equally, motor intact, sensory intact, CN II-XII intact, normal cerebellar, normal vision, normal speech. Psychiatric normal mood/affect. Heme/Lymph/Immune no lymphadenopathy. Differential Diagnosis: Differential diagnosis includes but is not limited to: ACS, atypical chest pain, pneumothorax, pneumonia, pulmonary embolism, aortic dissection, congestive heart failure, tumor, musculoskeletal pain, esophageal pain, GERD, peptic ulcer disease, pancreatitis Medical Decision Making: Plan for this patient IV establishment IV fluid bolus , IV fentanyl 100 mcg for pain control as she does not tolerate morphine or Dilaudid. EKG, chest x-ray, monitoring engineer, troponin, and re-evaluate. Re-evaluation: EKG interpretation by me on record in [facility] system. Impression time of EKG 2204, sinus rhythm rate of 74 no signs of acute ischemia. No ST elevation. No ST depression. EKG is compared to the patient's old EKG 10/30/2013 unchanged from previous EKGs. Blood pressure noted to be normal both arms. No difference. 2322: Dr. Burton. aware the patient is being admitted to the hospitalist service. I have consulted Dr. Dubois Who agrees to admit. 2324: Patient agrees for hospital admission. Patient is feeling much better after IV fentanyl in GI cocktail. Patient has a normal nonischemic EKG. A troponin that is 0.00 Plan for hospital admission. Source: Patient - Personal History LMP (Females 10-55): Hysterectomy Current Tetanus Diphtheria and Acellular Pertussis (TDAP): Yes Tetanus Vaccine Date: 2011 - Medical/Surgical History Hx Asthma: Yes Hx Chronic Respiratory Disease: No Hx Diabetes: No Hx Cardiac Disease: Yes Hx Renal Disease: No Hx Cirrhosis: No Hx Alcoholism: No Hx HIV/AIDS: No Hx Splenectomy or Spleen Trauma: No Other PMH: chronic pain. Spontaneous Coronary Artery disection, Stents LAD X 7 , obesity, depression, anxiety, and reflux// 3 SURGERIES IN LAST 3 years. Gastric sleeve, tosilectomy, back surg, 2 c-sections, amparo, endometreal ablation, hysterectomy, gastric sleeve repositioning; cdiff - Social History Smoking Status: Never smoked Constitutional: Initial Vital Signs Temperature (C) 36.8 C 03/31/18 21:51 Heart Rate 78 03/31/18 21:51 Respiratory Rate 17 03/31/18 21:51 Blood Pressure 128/79 H 03/31/18 21:51 O2 Sat (%) 97 03/31/18 21:51 O2 Delivery Mode Nasal Cannula O2 (L/minute) 2 Allergies/Adverse Reactions: cephalexin monohydrate [From Keflex] Allergy (Verified 03/31/18 21:48) epinephrine Allergy (Verified 03/31/18 21:48) hydromorphone HCl [From Dilaudid] Allergy (Verified 03/31/18 21:48) Other-Enter Comments ibuprofen Allergy (Verified 03/31/18 21:48) morphine Allergy (Verified 03/31/18 21:48) NSAIDS (Non-Steroidal Anti-Inflamma Allergy (Verified 03/31/18 21:48) Penicillins Allergy (Verified 03/31/18 21:48) tape (plastic) Allergy (Uncoded 03/31/18 21:48) Rash Home Medications: Medication Instructions Recorded Clopidogrel Bisulfate [Plavix (*)] 75 mg PO HS 12/10/13 Dexlansoprazole [Dexilant] 60 mg PO BID 12/10/13 Promethazine HCl [Phenergan 25mg 25 mg PO Q6 PRN 12/10/13 (*)] Sertraline HCl [Zoloft 100mg (*)] 250 mg PO HS 12/10/13 Topiramate [Topamax] 50 mg PO BID 12/10/13 Zolpidem Tartrate [Ambien 10 mg] 10 mg PO HS 12/10/13 Ondansetron Odt [Zofran Odt 4 mg 4 mg PO Q6 PRN 03/14/15 (*)] Sucralfate [Carafate 1gm/10ml Oral 1 gm PO QID 03/14/15 Liquid (*)] Potassium Cl [Klor-Con 10 meq (RX)] 10 meq PO DAILY 04/06/15 Gabapentin [Neurontin 300 MG (*)] 300 mg PO BID 04/07/15 Albuterol [Proventil Inhaler HFA 1 - 2 puffs IH Q4H PRN 05/12/17 (*)] Fluticasone/Salmeter 250/50Mcg 1 puffs IH BID PRN 05/12/17 [Advair 250/50 (*)] Montelukast Sodium [Singulair 10 10 mg PO HS 05/12/17 mg (*)] clonazePAM [Klonopin (*)] 0.5 mg PO TID 05/12/17 fentaNYL [Duragesic 50 MCG Patch 50 mcg TD Q72H 09/12/17 (*)] Methocarbamol [Robaxin 500 mg (*)] 500 mg PO QID PRN 02/16/18 Nitroglycerin [Nitrostat 0.4 mg 0.4 mg SL Q5M PRN 02/16/18 (*)] buPROPion XL [Wellbutrin 150mg XL] 150 mg PO DAILY 02/16/18 Albuterol [Proventil Neb] 3 ml IH QID PRN 04/01/18 Ergocalciferol [Vitamin D2 (*)] 50,000 unit PO TH 04/01/18 Hydrocodone/Acetaminophen [[place] 1 each PO TID PRN 04/01/18 7.5-325 Tablet] Naloxone HCl [Narcan] 4 mg NS AD PRN 04/01/18 Nitroglycerin [Nitroglycerin Patch] 1 each TD AD PRN #30 patch.td24 04/01/18 Prazosin HCl [Minipress] 2 mg PO HS 04/01/18 oxyCODONE IR [Oxycodone Ir (*)] 5 mg PO Q6HRS PRN 04/01/18 traZODone [traZODONE 50MG (*)] 50 mg PO HS 04/01/18 Medical Decision Making - Data Points Laboratory Results: Laboratory Results 03/31/18 22:05 03/31/18 22:05 Medications Given: Discontinued Medications Acetaminophen (Tylenol) 650 mg PO Q4HRS PRN PRN Reason: Pain, Mild/Fever, Can Take PO Stop: 09/27/18 23:23 Last Admin: 04/01/18 18:55 Dose: 650 mg Al Hydroxide/Mg Hydroxide (Maalox Susp) 30 ml PO EDNOW ONE Stop: 03/31/18 22:47 Last Admin: 03/31/18 22:57 Dose: 30 ml Al Hydroxide/Mg Hydroxide (Maalox Susp) 30 ml PO ONCE ONE Stop: 04/01/18 15:04 Last Admin: 04/01/18 15:35 Dose: 30 ml Aspirin (Aspirin) 81 mg PO ONCE ONE Stop: 04/01/18 01:11 Last Admin: 04/01/18 01:35 Dose: 81 mg Bupropion HCl (Wellbutrin Xl) 150 mg PO DAILY [facility] Stop: 09/28/18 09:29 Last Admin: 04/01/18 10:46 Dose: 150 mg Clonazepam (Klonopin) 1 mg PO HS PRN PRN Reason: Insomnia Stop: 09/28/18 20:59 Last Admin: 04/01/18 01:37 Dose: 1 mg Clonazepam (Klonopin) 0.5 mg PO TID [facility] Stop: 09/28/18 15:59 Last Admin: 04/01/18 15:32 Dose: 0.5 mg Clopidogrel Bisulfate (Plavix) 75 mg PO ONCE ONE Stop: 04/01/18 01:11 Last Admin: 04/01/18 01:36 Dose: 75 mg Enoxaparin Sodium (Lovenox) 40 mg SC DAILY [facility] Stop: 09/28/18 08:59 Last Admin: 04/01/18 10:13 Dose: Not Given Fentanyl (Sublimaze) 100 mcg IVP EDNOW ONE Stop: 03/31/18 22:13 Last Admin: 03/31/18 22:18 Dose: 100 mcg Fentanyl (Sublimaze) 50 mcg IVP EDNOW ONE Stop: 03/31/18 22:41 Last Admin: 03/31/18 22:42 Dose: 50 mcg Fentanyl (Sublimaze) 50 mcg IVP EDNOW ONE Stop: 03/31/18 22:42 Last Admin: 04/01/18 00:28 Dose: Not Given Fentanyl (Duragesic) 50 mcg TD Q72H [facility] Stop: 04/11/18 09:29 Last Admin: 04/01/18 10:46 Dose: 50 mcg Hyoscyamine Sulfate (Levsin, Hyomax-Sl) 0.25 mg PO ONCE ONE Stop: 04/01/18 15:04 Last Admin: 04/01/18 15:35 Dose: 0.25 mg Sodium Chloride (Ns) 1,000 mls @ 0 mls/hr IV EDNOW ONE; Wide Open PRN Reason: Protocol Stop: 03/31/18 22:11 Last Admin: 03/31/18 22:17 Dose: 1,000 mls Lidocaine (Lidocaine 2% Viscous) 5 ml PO EDNOW ONE Stop: 03/31/18 22:53 Last Admin: 03/31/18 22:57 Dose: 5 ml Lidocaine (Lidocaine 2% Viscous) 15 ml PO ONCE ONE Stop: 04/01/18 15:04 Last Admin: 04/01/18 15:35 Dose: 15 ml Methocarbamol (Robaxin) 500 mg PO QID PRN PRN Reason: Spasms Stop: 09/28/18 09:24 Last Admin: 04/01/18 11:48 Dose: 500 mg Nitroglycerin (Transderm-Nitro) 0.1 mg TD DAILY [facility] Stop: 09/28/18 14:44 Last Admin: 04/01/18 15:32 Dose: 0.1 mg Ondansetron HCl (Zofran) 4 mg IVP Q4HRS PRN PRN Reason: Nausea/Vomiting, Can't Take PO Stop: 09/27/18 23:23 Last Admin: 04/01/18 06:10 Dose: 4 mg Ondansetron HCl (Zofran Odt) 4 mg PO Q4HRS PRN PRN Reason: Nausea/Vomiting, Use 1st Stop: 09/27/18 23:23 Last Admin: 04/01/18 13:05 Dose: 4 mg Oxycodone HCl (Oxycodone Ir) 5 - 10 mg PO Q4HRS PRN PRN Reason: Pain, Severe Able to Take PO Stop: 04/11/18 01:11 Last Admin: 04/01/18 06:33 Dose: 10 mg Oxycodone HCl (Oxycodone Ir) 5 mg PO Q6HRS PRN PRN Reason: Pain, Breakthrough Stop: 04/11/18 09:24 Last Admin: 04/01/18 18:56 Dose: 5 mg Pantoprazole Sodium (Protonix) 40 mg PO BID ANIKA Stop: 09/28/18 09:44 Last Admin: 04/01/18 10:46 Dose: 40 mg Potassium Chloride (Potassium Chloride Oral Liquid) 40 meq PO ONCE ONE Stop: 04/01/18 12:20 Last Admin: 04/01/18 13:03 Dose: 40 meq Sertraline HCl (Zoloft) 100 mg PO ONCE ONE Stop: 04/01/18 01:13 Last Admin: 04/01/18 01:37 Dose: 100 mg Sucralfate (Carafate Suspension) 1 gm PO QID [facility] Stop: 09/28/18 11:59 Last Admin: 04/01/18 16:52 Dose: 1 gm Topiramate (Topamax) 50 mg PO ONCE ONE Stop: 04/01/18 06:21 Last Admin: 04/01/18 06:34 Dose: 50 mg Topiramate (Topamax) 50 mg PO BID [facility] Stop: 09/28/18 09:44 Last Admin: 04/01/18 10:41 Dose: Not Given Zolpidem Tartrate (Ambien) 10 mg PO ONCE ONE Stop: 04/01/18 01:11 Last Admin: 04/01/18 01:38 Dose: 10 mg Point of Care Test Results: Chemistry 03/31/18 22:15 POC Troponin I 0.00 ng/mL ng/mL (0.00-0.08) Departure - Departure Disposition: [facility] Inpatient Acute Clinical Impression: Chest pain Qualifiers: Chest pain type: unspecified Qualified Code(s): R07.9 - Chest pain, unspecified Condition: Fair
[2018-03-31] MEDS ORDERED: NS 1,000 ML IV ONE (22:10)
[2018-03-31] MEDS ORDERED: fentaNYL 100 MCG/2 ML INJ IVP ONE ×3 (22:12→22:41)
[2018-03-31 22:29] LABS: PLATELET COUNT 161 10^3/uL (150-400)
[2018-03-31 22:39] LABS: INR 0.95 (0.83-1.16); PROTIME(PATIENT) 12.9 SEC (12.0-15.0)
[2018-03-31] MEDS ORDERED: fentaNYL 100 MCG/2 ML INJ ONE (22:40)
[2018-03-31] MEDS ORDERED: MAG HYDROX/AL HYDROX/SIMETH 30 ML UDCUP PO ONE (22:46)
[2018-03-31] MEDS ORDERED: LIDOCAINE 2% VISCOUS 15 ML UDCUP PO ONE (22:52)
[2018-03-31] MEDS ORDERED: MAG HYDROX/AL HYDROX/SIMETH 30 ML UDCUP ONE (22:54)
[2018-03-31] MEDS ORDERED: LIDOCAINE 2% VISCOUS 15 ML UDCUP ONE (22:54)
[2018-03-31] MEDS ORDERED: ONDANSETRON 4 MG/2 ML VIAL IVP PRN (23:24)
[2018-03-31] MEDS ORDERED: ONDANSETRON DISINTEGRATING 4 MG TAB PO PRN (23:24)
[2018-03-31] MEDS ORDERED: NITROGLYCERIN 0.4 MG BTL SL PRN (23:26)
[2018-03-31] MEDS ORDERED: NITROGLYCERIN/DEXTROSE 250 ML IV SCH (23:45)
--- NOTE | 2018-04-01 00:13 | PDGENHP ---
History and Physical - Chief Complaint Chest pain - History of Present Illness 42 yo F w/ complicated PMHx including coronary dissection s/p stenting x7, gastric sleeve w/ numerous complications, depression, anxiety, and chronic pain presents with chest pain. The patient tells me she almost always has lower chest /upper abdominal pain. She describes this as someone pressing a hot knife into her chest. The pain readiates to her back and down her L arm. She is usually able to take care her of her symptoms with a combination of nitroglycerin and opiates. Over the last 24 hours, however, her chest pain has escalated in severity and persistence. She tells me nitroglycerin helps but does not last long. In the ED her evaluation is unremarkable so far with normal ECG and negative troponin. The patient is upset at the overall trajectory of her care, especially regarding delays in a planned repair for a hiatal hernia. She receives a lot of her surgical care in [place]. Case discussed with ED physician Dr. Gleason; records reviewed and summarized above. History Information - Allergies/Home Medication List Allergies/Adverse Reactions: cephalexin monohydrate [From Keflex] Allergy (Verified 03/31/18 21:48) epinephrine Allergy (Verified 03/31/18 21:48) hydromorphone HCl [From Dilaudid] Allergy (Verified 03/31/18 21:48) Other-Enter Comments ibuprofen Allergy (Verified 03/31/18 21:48) morphine Allergy (Verified 03/31/18 21:48) NSAIDS (Non-Steroidal Anti-Inflamma Allergy (Verified 03/31/18 21:48) Penicillins Allergy (Verified 03/31/18 21:48) tape (plastic) Allergy (Uncoded 03/31/18 21:48) Rash Home Medications: Aspirin EC [Aspirin EC 81 mg (*)] 81 mg PO HS 12/10/13 [Last Taken 09/10/17] Clopidogrel Bisulfate [Plavix (*)] 75 mg PO HS 12/10/13 [Last Taken 09/10/17] Dexlansoprazole [Dexilant] 60 mg PO BID 12/10/13 [Last Taken 09/11/17 06:00] Promethazine HCl [Phenergan 25mg (*)] 25 mg PO Q6 PRN 12/10/13 [Last Taken 05/11] Sertraline HCl [Zoloft 100mg (*)] 100 mg PO BID 12/10/13 [Last Taken 09/10/17] Topiramate [Topamax] 50 mg PO BID 12/10/13 [Last Taken 09/11/17 06:00] Zolpidem Tartrate [Ambien 10 mg] 10 mg PO HS PRN 12/10/13 [Last Taken 09/10/17] Labetalol HCl [Trandate 100 mg (*)] 100 mg PO BID 03/14/15 [Last Taken 09/11/17 06:00] Ondansetron Odt [Zofran Odt 4 mg (*)] 4 mg PO Q6 PRN 03/14/15 [Last Taken 06:00] Sucralfate [Carafate 1gm/10ml Oral Liquid (*)] 1 gm PO QID 03/14/15 [Last Taken 09/11/17 06:00] Potassium Cl [Klor-Con 10 meq (RX)] 10 meq PO QID 04/06/15 [Last Taken 09/10/17] Gabapentin [Neurontin 300 MG (*)] 300 mg PO BID 04/07/15 [Last Taken 09/12/17] Albuterol [Proventil Inhaler HFA (*)] 1 - 2 puffs IH Q4H PRN 05/12/17 [Last Taken 05/11/17] Fluticasone/Salmeter 250/50Mcg [Advair 250/50 (*)] 1 puffs IH BID PRN 05/12/17 [ Last Taken 05/12/17 09:00] Montelukast Sodium [Singulair 10 mg (*)] 10 mg PO HS 05/12/17 [Last Taken ] clonazePAM [Klonopin (*)] 1 mg PO TID PRN 05/12/17 [Last Taken 09/12/17] fentaNYL [Duragesic 50 MCG Patch (*)] 50 mcg TD Q72H 09/12/17 [Last Taken ] Hydrocodone/Acetaminophen [Hydrocodone-Acetamin 5-325 mg] 1 each PO TID PRN [Last Taken Unknown] Methocarbamol [Robaxin 500 mg (*)] 500 mg PO QID 02/16/18 [Last Taken Unknown] Nitroglycerin [Nitrostat 0.4 mg (*)] 0.4 mg SL Q5M PRN 02/16/18 [Last Taken Unknown] buPROPion XL [Wellbutrin 150mg XL] 150 mg PO DAILY 02/16/18 [Last Taken Unknown] I have personally reviewed and updated: family history, medical history - Past Medical History coronary artery disease (Dissection) Additional medical history: Depression. Anxiety. Chronic pain - Surgical History Reports: cholecystectomy, hysterectomy, spinal surgery Additional surgical history: Gastric sleeve with numerous complications - Family History Positive for: cancer, hypertension Additional family history: Obesity - Social History Smoking Status: Never smoked Review of Systems Review of Systems: ROS: 10pt was reviewed & negative except for what was stated in HPI & below Physical Exam Physical Exam: Temp Pulse Resp BP Pulse Ox 37.1 C 65 18 137/82 H 100 03/31/18 22:26 03/31/18 23:45 03/31/18 23:45 03/31/18 23:45 03/31/18 23:45 O2 (L/minute) 2 Constitutional: obese, uncomfortable Eyes: PERRL, EOMI Ears, Nose, Mouth, Throat: moist mucous membranes, no oral mucosal ulcers Cardiovascular: regular rate and rhythym, no murmur, rub, or gallop Respiratory: no respiratory distress, clear to auscultation Gastrointestinal: normoactive bowel sounds, tenderness (Diffuse), No guarding, No rebound, No distension Skin: warm, normal color Musculoskeletal: full muscle strength, no muscle tenderness Neurologic: AAOx3, CN II-XII Intact Psychiatric: interacting appropriately, anxious, depressed Lab Data & Imaging Review 03/31/18 22:05 03/31/18 22:05 WBC 6.61 10^3/uL (3.80-9.50) 03/31/18 22:05 RBC 4.20 10^6/uL (4.18-5.33) 03/31/18 22:05 Hgb 12.5 g/dL (12.6-16.3) L 03/31/18 22:05 Hct 38.6 % (38.0-47.0) 03/31/18 22:05 MCV 91.9 fL (81.5-99.8) 03/31/18 22:05 MCH 29.8 pg (27.9-34.1) 03/31/18 22:05 MCHC 32.4 g/dL (32.4-36.7) 03/31/18 22:05 RDW 13.1 % (11.5-15.2) 03/31/18 22:05 Plt Count 161 10^3/uL (150-400) 03/31/18 22:05 MPV 9.9 fL (8.7-11.7) 03/31/18 22:05 Neut % (Auto) 58.7 % (39.3-74.2) 03/31/18 22:05 Lymph % (Auto) 31.5 % (15.0-45.0) 03/31/18 22:05 [place] % (Auto) 7.9 % (4.5-13.0) 03/31/18 22:05 Eos % (Auto) 1.4 % (0.6-7.6) 03/31/18 22:05 Baso % (Auto) 0.3 % (0.3-1.7) 03/31/18 22:05 Nucleat RBC Rel Count 0.0 % (0.0-0.2) 03/31/18 22:05 Absolute Neuts (auto) 3.89 10^3/uL (1.70-6.50) 03/31/18 22:05 Absolute Lymphs (auto) 2.08 10^3/uL (1.00-3.00) 03/31/18 22:05 Absolute Monos (auto) 0.52 10^3/uL (0.30-0.80) 03/31/18 22:05 Absolute Eos (auto) 0.09 10^3/uL (0.03-0.40) 03/31/18 22:05 Absolute Basos (auto) 0.02 10^3/uL (0.02-0.10) 03/31/18 22:05 Absolute Nucleated RBC 0.00 10^3/uL (0-0.01) 03/31/18 22:05 Immature Gran % 0.2 % (0.0-1.1) 03/31/18 22:05 Immature Gran # 0.01 10^3/uL (0.00-0.10) 03/31/18 22:05 PT 12.9 SEC (12.0-15.0) 03/31/18 22:05 INR 0.95 (0.83-1.16) 03/31/18 22:05 APTT 25.9 SEC (23.0-38.0) 03/31/18 22:05 D-Dimer 0.35 ug/mLFEU (0.00-0.50) 03/31/18 22:05 Sodium 141 mEq/L (135-145) 03/31/18 22:05 Potassium 3.7 mEq/L (3.5-5.2) 03/31/18 22:05 Chloride 112 mEq/L (97-110) H 03/31/18 22:05 Carbon Dioxide 21 mEq/l (22-31) L 03/31/18 22:05 Anion Gap 8 mEq/L (6-14) 03/31/18 22:05 BUN 12 mg/dL (7-23) 03/31/18 22:05 Creatinine 0.7 mg/dL (0.6-1.0) 03/31/18 22:05 Estimated GFR > 60 03/31/18 22:05 Glucose 85 mg/dL (70-100) 03/31/18 22:05 Calcium 8.6 mg/dL (8.5-10.4) 03/31/18 22:05 Magnesium 2.0 mg/dL (1.6-2.3) 03/31/18 22:05 Total Bilirubin 0.6 mg/dL (0.1-1.4) 03/31/18 22:05 Conjugated Bilirubin 0.5 mg/dL (0.0-0.5) 03/31/18 22:05 Unconjugated Bilirubin 0.1 mg/dL (0.0-1.1) 03/31/18 22:05 AST 144 IU/L (14-46) H 03/31/18 22:05 ALT 72 IU/L (9-52) H 03/31/18 22:05 Alkaline Phosphatase 71 IU/L (38-126) 03/31/18 22:05 POC Troponin I 0.00 ng/mL (0.00-0.08) 03/31/18 22:15 NT-Pro-B Natriuret Pep 201 pg/mL (0-125) H 03/31/18 22:05 Total Protein 6.6 g/dL (6.3-8.2) 03/31/18 22:05 Albumin 4.1 g/dL (3.5-5.0) 03/31/18 22:05 Lipase 39 IU/L (23-300) 03/31/18 22:05 Imaging Review: Imaging Impressions Chest X-Ray 03/31/18 22:11 Impression: Mild cardiomegaly without evidence of heart failure or fluid overload.. Visualized and Interpreted EKG results: Yes EKG Interpretation: Positive for: normal sinsus rhythm Assessment & Plan Assessment: 42 yo F w/ complicated PMHx including coronary dissection s/p stenting x7, gastric sleeve w/ numerous complications, depression, anxiety, and chronic pain presents with chest pain. Plan: 1. Chest pain - Patient has long history of chronic chest pain, but today it is increased in severity and persistence. Pain improves with nitroglycerin but quickly returns. Clinically this is concerning for possible coronary vasospasm noting extensive history of coronary dissection and stenting. GI etiologies are also a possibility noting extensive GI history and complications. ECG ( personally reviewed/interpreted) without signs of ischemia; initial troponin negative. - Admit to PCU for observation - Monitor on telemetry, trend cardiac enzymes - Will trial nitroglycerin drip for pain control - Cardiology (Dr. Burton) consulted in the ED, will see patient in the morning 2. Hx coronary dissection - With placement of 7 stents in the past. - Continue DAPT - Acute management as above - Cardiology consulted 3. Hx gastric sleeve - With numerous subsequent complications. The patient tells me she tolerates minimal PO intake. 4. Chronic pain - On chronic opiate therapy. - Continue home medications pending reconciliation 5. Depression, anxiety - Likely contributing to symptoms Diet - NPO pending cardiology evaluation Code - Full Ppx - LMWH Dispo - Admit under observation status
[2018-04-01] MEDS ORDERED: ZOLPIDEM TARTRATE 5 MG TAB PO ONE (01:10)
[2018-04-01] MEDS ORDERED: CLOPIDOGREL BISULFATE 75 MG TAB PO ONE (01:10)
[2018-04-01] MEDS ORDERED: ASPIRIN 81 MG CHEWABLE TAB PO ONE (01:10)
[2018-04-01] MEDS ORDERED: clonazePAM 1 MG TAB PO PRN (01:11)
[2018-04-01] MEDS ORDERED: SERTRALINE HCL 100 MG TAB PO ONE (01:12)
[2018-04-01] MEDS: ACETAMINOPHEN 325 MG TAB PO PRN ×4 (01:35→18:55)
[2018-04-01] MEDS: oxyCODONE IR 5 MG TAB PO PRN ×4 (01:36→18:56)
[2018-04-01 04:53] LABS: PLATELET COUNT 137 10^3/uL (150-400)
[2018-04-01] MEDS ORDERED: TOPIRAMATE 25 MG TAB PO ONE (06:20)
[2018-04-01] MEDS ORDERED: ENOXAPARIN 40 MG/0.4 ML SYR SC SCH (09:00)
[2018-04-01] MEDS ORDERED: PROMETHAZINE HCL 25 MG TAB PO PRN (09:25)
[2018-04-01] MEDS ORDERED: NITROGLYCERIN 0.4 MG BTL SL PRN (09:25)
[2018-04-01] MEDS ORDERED: METHOCARBAMOL 500 MG TAB PO PRN (09:25)
[2018-04-01] MEDS ORDERED: FLUTICASONE/SALMETER 250/50MCG DISKUS IH PRN (09:25)
[2018-04-01] MEDS ORDERED: ALBUTEROL 60 PUFFS/8 GM MDI IH PRN (09:25)
[2018-04-01] MEDS ORDERED: buPROPion XL 150 MG TAB PO SCH (09:30)
[2018-04-01] MEDS ORDERED: fentaNYL 50 MCG PATCH TD SCH (09:30)
[2018-04-01] MEDS ORDERED: HYDROCODONE/APAP 10/325 TAB PO PRN (09:41)
[2018-04-01] MEDS ORDERED: PANTOPRAZOLE SODIUM 40 MG TAB PO SCH (09:45)
[2018-04-01] MEDS ORDERED: TOPIRAMATE 25 MG TAB PO SCH (09:45)
[2018-04-01] MEDS: SUCRALFATE 1 GM/10 ML UDCUP PO SCH ×2 (11:48→16:52)
[2018-04-01] MEDS ORDERED: POTASSIUM CL 20 MEQ/15 ML UDCUP PO ONE (12:19)
[2018-04-01] MEDS ORDERED: NITROGLYCERIN 0.1 MG/HR PATCH TD SCH (14:45)
[2018-04-01] MEDS ORDERED: HYOSCYAMINE SULFATE 0.125 MG TAB PO ONE (15:03)
[2018-04-01] MEDS ORDERED: MAG HYDROX/AL HYDROX/SIMETH 30 ML UDCUP PO ONE (15:03)
[2018-04-01] MEDS ORDERED: LIDOCAINE 2% VISCOUS 15 ML UDCUP PO ONE (15:03)
[2018-04-01] MEDS ORDERED: clonazePAM 0.5 MG TAB PO SCH (16:00)
[2018-04-01 16:11] VITALS: BP 131/76
--- NOTE | 2018-04-01 16:48 | PDDCSUM ---
Discharge Summary Discharge Summary: Date of Admission: 03/31/2018 Date of Discharge: 04/01/2018 Consultants: cardiology Studies: CXR, ECG Discharge Diagnoses: 1. Chest pain, highly suspect non-cardiac 2. SCAD s/p 7 stents to LAD 3. Gastric sleeve with several complications 4. Hiatal hernia 5. Chronic pain with continuous opioid dependency 6. Depression/anxiety Brief Hospital Course: 42 yo F w/ complicated PMHx including coronary dissection s/p stenting x7, gastric sleeve w/ numerous complications, depression, anxiety, and chronic pain presents with chest pain. Serial troponins and ECGs were non-ischemic. Telemetry remained quiet. Cardiology was consulted. Overall, it was felt her symptoms were GI related (reflux, esophageal spasm) and they improved with a GI cocktail. She was continued on DAPT (ASA, clopidogrel). She has cardiology and GI follow up. Medications: Please refer to EMR. I refilled her nitroglycerin patch, otherwise no changes. Follow Up Plan: 1. Dr Frias of cardiology as planned 2. Gastroenterology and surgery to discuss management of hiatal hernia Physical Exam: Vitals and telemetry reviewed, stable. Alert and oriented, RRR without m/r/g, lungs clear, abdomen soft and nt, no leg edema, no JVD, no rashes.
--- NOTE | 2018-04-01 17:02 | ASMTLACE ---
LACE Length of stay for Answers: Less than 1 day current admission Acuity / Level of Answers: No Care: Did the patient have an inpatient admission? Comorbidities - select Answers: Coronary Artery Disease all that apply Opioid dependence / Chronic pain Previous myocardial infarction # of Emergency department Answers: 3-4 visits in the last 6 months Social determinants Answers: Mental health diagnosis (anxiety, depression, pers onality disorders, etc.) Score: 13 Date Signed: 04/01/2018 05:01 PM Electronically Signed By:Natalee Martinez RN
--- NOTE | 2018-04-01 17:06 | ASMTCMCOM ---
CM Note CM Note Notes: 04/01/2018 Case Management Note Left message with oncall provider on Dr. Bahena number [phone] for PCP follow up after discharge. Requested appointment by end of week. Date Signed: 04/01/2018 05:05 PM Electronically Signed By:Natalee Martinez RN
--- NOTE | 2018-04-01 17:16 | GCON ---
[f rep st] CONSULTATION CARDIAC CONSULTATION DATE OF CONSULTATION: 04/01/2018 CHIEF COMPLAINT: Chest pain. HISTORY OF PRESENT ILLNESS: The patient is a 42-year-old female with a history of spontaneous coronary artery dissection related to , status post stenting to the LAD x7 who was admitted with chest pain. She also has a long history of nausea, vomiting, and abdominal discomfort with a gastric bypass sleeve and multiple surgeries related to that over the next few years. She is scheduled to have a hiatal hernia repair in the near future. She has a history of chronic chest pain since stenting to her LAD in 2016. She has had multiple evaluations of her coronary circulation. Most recently, she had a coronary CT angiogram in May 2017, which was a difficult study, but did not show any significant disease. Her last angiogram was in February 2015, which showed preserved LV function without any evidence of obstructive disease. She does admit to stopping her nitroglycerin patch over the last few months. This did seem to relieve her discomfort. On admission to the hospital, she was started on a nitroglycerin drip with an improvement in her discomfort. She had recent esophageal study, which did suggest esophageal spasm. PAST MEDICAL HISTORY: SCAD, hypertension, hyperlipidemia, diabetes, depression , and anxiety. PAST SURGICAL HISTORY: She has had a prior gastric sleeve and multiple surgeries post secondary to complications. She has had prior hiatal hernia surgery. FAMILY HISTORY: Noncontributory. SOCIAL HISTORY: She lives in [place] and has 2 teenage daughters. She denies any excessive alcohol or tobacco use. HOME MEDICATIONS: Ambien 10 mg at bedtime, Topamax 50 mg b.i.d., Zoloft 250 mg at bedtime, Phenergan 25 mg p.r.n., Dexilant 60 mg b.i.d., Plavix 75 mg daily, sucralfate 1 g four times daily, Zofran 4 mg p.r.n., Klor-Con 10 mEq daily, Neurontin 300 mg b.i.d., albuterol p.r.n., Klonopin 0.5 mg t.i.d., Singulair 10 mg at bedtime. Advair p.r.n., fentanyl 50 mcg transdermal q.72 hours, Wellbutrin 150 mg daily, nitroglycerin p.r.n., Robaxin 500 mg p.o. q.i.d. p.r.n. , trazodone 50 mg at bedtime, prazosin 2 mg at bedtime, vitamin D on , oxycodone IR 5 mg q.6 p.r.n., albuterol p.r.n., Cowan p.r.n. ALLERGIES: Please see medication list. REVIEW OF SYSTEMS: She is complaining of a headache related to nitroglycerin drip. She is complaining of abdominal pain, nausea, and vomiting. The remainder of her review of systemsare negative, except for what is stated in the H and P. PHYSICAL EXAMINATION: GENERAL: Patient appears in no acute distress. VITAL SIGNS: Blood pressure 131/76, heart rate 59, oxygen saturation 96% on room air , afebrile. HEENT: Within normal limits. LUNGS: Clear to auscultation. No wheezes, rhonchi, or crackles auscultated. CARDIAC: Regular rate and rhythm, without any significant murmurs, rubs, or gallops appreciated. ABDOMEN: Tender to palpation diffusely. Nondistended. Bowel sounds present. EXTREMITIES: Palpable pulses bilaterally without any evidence of edema. NEUROLOGIC: Nonfocal. PSYCHIATRIC: Mood and affect appropriate. SKIN: No obvious rashes or ecchymosis identified . LABORATORY: Troponin negative x2. D-dimer 0.35. DIAGNOSTIC STUDIES: EKG reveals normal sinus rhythm with nonspecific ST-T wave changes. Chest x-ray shows mild cardiomegaly without heart failure. ASSESSMENT: The patient is a 42-year-old female with a history of spontaneous coronary artery dissection and chronic abdominal pain, nausea, and vomiting who presents with chest pain. PLAN: The patient has a history of spontaneous coronary artery dissection with stenting to the LAD x7 years ago. She has had chronic chest pain since that time. She also has significant abdominal discomfort with nausea and vomiting. Her troponins are negative x2. An EKG is nonischemic. I believe her symptoms are most likely related to esophageal spasm and reflux. She does admit to stopping her nitroglycerin patch a few months ago. I would like to resume nitroglycerin at 0.1 transdermal daily. If her symptoms improve, I think she can be discharged home with plans to follow up with her strapper operator. She is also scheduled to follow up in our office with Dr. Richard Frias, her toolman. /[id number]/MODL MTDD
[2018-04-01] MEDS ORDERED: SERTRALINE HCL 100 MG TAB PO SCH (21:00)
[2018-04-01] MEDS ORDERED: PRAZOSIN HCL 1 MG CAP PO SCH (21:00)
[2018-04-01] MEDS ORDERED: GABAPENTIN 300 MG CAP PO SCH (21:00)
[2018-04-01] MEDS ORDERED: traZODone 50 MG TAB PO SCH (21:00)
[2018-04-01] MEDS ORDERED: CLOPIDOGREL BISULFATE 75 MG TAB PO SCH (21:00)
[2018-04-01] MEDS ORDERED: ZOLPIDEM TARTRATE 5 MG TAB PO SCH (21:00)
[2018-04-01] MEDS ORDERED: MONTELUKAST SODIUM 10 MG TAB PO SCH (21:00)
[2018-04-01] MEDS ORDERED: PATCH REMOVAL 1 EA PATCH TD SCH (21:00)
[2018-04-02] MEDS ORDERED: POTASSIUM CL 10 MEQ TAB PO SCH (09:00)
--- NOTE | 2018-04-02 20:02 | CPEKG ---
Test Reason : OPEN Blood Pressure : / mmHG Vent. Rate : 059 BPM Atrial Rate : 059 BPM P-R Int : 195 ms QRS Dur : 071 ms QT Int : 388 ms P-R-T Axes : 007 005 012 degrees QTc Int : 385 ms Sinus rhythm Confirmed by Tex Shaw ([id number]) on 04/02/2018 8:01:48 PM Referred By: Kwan Dubois Confirmed By:Tex Shaw
--- NOTE | 2018-04-04 07:34 | CPEKG ---
Test Reason : OPEN Blood Pressure : / mmHG Vent. Rate : 074 BPM Atrial Rate : 074 BPM P-R Int : 184 ms QRS Dur : 097 ms QT Int : 389 ms P-R-T Axes : 020 011 010 degrees QTc Int : 432 ms Sinus rhythm Confirmed by Jaiden Barbosa ([id number]) on 04/04/2018 7:33:28 AM Referred By: Jaiden Barbosa Confirmed By:Jaiden Barbosa
== END 2018-04-01 19:28 | disposition home or self-care (01) ==
LOC: F2W 04-01 00:17
PROVIDERS: ADMIT Student in an Organized Health Care Education/Training Program; ATTEND Student in an Organized Health Care Education/Training Program
DX: R07.9 Chest pain, unspecified (principal); I25.42 Coronary artery dissection; E78.5 Hyperlipidemia, unspecified; I10 Essential (primary) hypertension; E11.9 Type 2 diabetes mellitus without complications; R10.13 Epigastric pain; R11.2 Nausea with vomiting, unspecified; G89.29 Other chronic pain; F41.8 Other specified anxiety disorders; Z95.5 Presence of coronary angioplasty implant and graft
CPT/HCPCS: 71045; 93005; 96361; 96374; 96375; 99285; G0378; 84484-ER; J2405; J3010

== ENCOUNTER 2018-07-10 07:13 | Day surgery (SDC) | payer OTHER ==
[2018-07-10] MEDS ORDERED: ASPIRIN EC 325 MG TAB PO ONE ×2 (07:18→07:41)
[2018-07-10] MEDS ORDERED: NS 1,000 ML IV ONE (07:18)
[2018-07-10] MEDS ORDERED: diphenhydrAMINE 25 MG CAP PO ONE ×2 (07:18→07:41)
[2018-07-10] MEDS ORDERED: DIAZEPAM 5 MG TAB PO ONE (07:18)
[2018-07-10] MEDS ORDERED: FAMOTIDINE 20 MG TAB PO ONE (07:18)
[2018-07-10] MEDS ORDERED: MIDAZOLAM 2 MG/2 ML VIAL ONE ×2 (07:31→08:59)
[2018-07-10] MEDS ORDERED: fentaNYL 100 MCG/2 ML INJ ONE ×2 (07:31→09:06)
[2018-07-10] MEDS ORDERED: LIDOCAINE 1% 5 ML SDV ONE (07:32)
[2018-07-10] MEDS ORDERED: IOPAMIDOL (ISOVUE 370) 100 ML BTL IV ONE (07:32)
[2018-07-10] MEDS ORDERED: FAMOTIDINE 20 MG TAB ONE (07:41)
[2018-07-10] MEDS ORDERED: DIAZEPAM 5 MG TAB ONE (07:43)
--- NOTE | 2018-07-10 08:05 | PDHPUP ---
History & Physical Update H&P update statement: This history and physical update is based on an assessment of the patient which was completed after admission or registration (within 24 hours), but prior to the surgery/procedure. H&P update: H&P reviewed & patient examined, no change in patient's condition since H&P completed
--- NOTE | 2018-07-10 08:05 | PDPROPOC ---
Sedation Plan of Care Sedation Plan of Care: vital signs stable, mental status noted, patient educated of risks, benefits, alternatives, patient can tolerate sedation ASA Classification: ASA 2 Planned drugs: fentanyl, midazolam Mallampati Score: Class 2 Mallampati Reference Image: Patient passed 3-3-2 rule?: Yes
[2018-07-10 08:09] LABS: PLATELET COUNT 194 10^3/uL (150-400)
[2018-07-10 08:26] LABS: INR 0.99 (0.83-1.16); PROTIME(PATIENT) 12.7 SEC (12.0-15.0)
[2018-07-10] MEDS ORDERED: ATROPINE SULFATE 1 MG/10 ML SYR IVP PRN (09:27)
[2018-07-10] MEDS ORDERED: NITROGLYCERIN 0.4 MG BTL SL PRN (09:27)
[2018-07-10] MEDS ORDERED: ONDANSETRON 4 MG/2 ML VIAL IVP PRN (09:27)
--- NOTE | 2018-07-10 11:01 | CPIP ---
[f rep st] INVASIVE CARDIAC PROCEDURE DATE OF PROCEDURE: 07/10/2018 PROCEDURE: Coronary angiography. INDICATION: 1. Patient has a history of SCAD. She is status post stenting of her mid and distal left anterior d escending coronary artery. 2. Chest pain with elevated troponin. 3. Preoperative evaluation. ACCESS: Patient was prepped and draped in sterile fashion. 1% lidocaine was used to anesthetize the right inguinal region. A 6-Czech introducer sheath was placed selectively into the right common fe moral artery via modified Seldinger technique. CORONARY ANGIOGRAPHY: A 6-Czech JL4 was advanced to the left main coronary artery and images obtain ed. The left main coronary artery is short. The left main coronary artery bifurcated into an LAD an d circumflex coronary arteries. The left main coronary artery appeared free of any significant disea se. The left anterior descending coronary artery gave rise to 1 prominent diagonal branch. The left anterior descending coronary artery was previously stented in the mid to distal segments. The previ ously placed stents are patent with mild in-stent restenosis. In the distal portion of the stent seg ment, there is a focal restenoses that is approximately 30-40 percent severity. This stenosed segmen t, however, is of approximately the same diameter of the distal vessel that it runs into suggesting i t is not flow limiting. The circumflex coronary artery is a large vessel and is dominant. The circu mflex coronary artery appeared normal. The right coronary artery was not injected as it was known to be nondominant. COMPLICATIONS: None. CONCLUSIONS: 1. Patent LAD stents with mild in-stent restenosis. 2. Plan is for medical management. /[id number]/MODL
--- NOTE | 2018-07-16 17:37 | CPEKG ---
Test Reason : OPEN Blood Pressure : / mmHG Vent. Rate : 065 BPM Atrial Rate : 065 BPM P-R Int : 192 ms QRS Dur : 090 ms QT Int : 403 ms P-R-T Axes : 006 003 -02 degrees QTc Int : 419 ms Sinus rhythm Poor R wave progression Borderline T abnormalities, inferior leads Confirmed by Richard Gutierrez ([id number]) on 07/16/2018 5:37:25 PM Referred By: Richard Gutierrez Confirmed By:Richard Gutierrez
== END 2018-07-10 13:40 | disposition home or self-care (01) ==
LOC: FCATH 07:13
PROVIDERS: ATTEND Internal Medicine Cardiovascular Disease
PROC: B2111ZZ Fluoroscopy of Multiple Coronary Arteries using Low Osmolar Contrast (ICD-10-PCS; principal; 2018-07-10)
DX: R07.9 Chest pain, unspecified (principal); R78.89 Finding of other specified substances, not normally found in blood; T82.857A Stenosis of other cardiac prosthetic devices, implants and grafts, initial encounter; Z95.5 Presence of coronary angioplasty implant and graft; E78.5 Hyperlipidemia, unspecified; I10 Essential (primary) hypertension
CPT/HCPCS: C1760; J1644; J2250; J3010; Q9967